=== PATIENT | male | born 1980 | race Caucasian/White ===

== ENCOUNTER 2021-10-11 15:31 | Emergency (ER) | payer OTHER ==
--- OUTSIDE RECORDS SUMMARY | 2021-10-11 15:40 | XMS REPORT | Continuity of Care Document ---
:1980 Author Organization [facility] t Address [address] [place] [address] [address] [place] [address] Care Team Providers Name Role Phone SUSTACHE Attending Clinician Unavailable CLAROS Attending Clinician Unavailable IHDE_G Attending Clinician Unavailable IHDE_G Admitting Clinician Unavailable CLAROS Admitting Clinician Unavailable Payers Payer Name Policy Type Policy Number Effective Date Expiration Date S ource EAST - HUMANA [id number] - PRIME () Problems Condition Condition Condition Status Onset Resolution Last Treating Co mments Source Name Details Category Date Date Treatment Clinician Date Right Right Problem Active NPI:167 inguinal Inguinal 02-19 [id number] hernia Hernia 00:00: 00 Allergies, Adverse Reactions, Alerts Allergy Allergy Status Severity Reaction(s) Onset Inactive Treating Comm ents Source Name Type Date Date Clinician NSAIDS Allergy Active GI bleed NPI:167 (NON-YARELIS to [id number] ROIDAL substanc ANTI-INF e LAMMATOR Y DRUG) PERTUSSI Allergy Active NPI:167 S to [id number] VACCINES substanc e Social History Smoking Status Start Date Stop Date Source Heavy Tobacco Smoker NPI:[id number] Medications Ordered Filled Start Stop Current Ordering Indication Dosage Frequency Signature Comments Components Source Medication Medication Date Date Medication? Clinician (SIG) Name Name buprenorphi buprenorphi No buprenorph NPI:167 ne 8 ne 8 ine 8 [id number] mg-naloxone mg-naloxone mg-naloxon 2 mg 2 mg e 2 mg sublingual sublingual sublingual film film film clonidine clonidine No clonidine NPI:167 HCl 0.2 mg HCl 0.2 mg HCl 0.2 mg [id number] tablet tablet tablet eszopiclone eszopiclone No eszopiclon NPI:167 3 mg tablet 3 mg tablet e 3 mg [id number] tablet levetiracet levetiracet No levetirace NPI:167 am 750 mg am 750 mg mendez 750 mg [id number] tablet tablet tablet modafinil modafinil No modafinil NPI:167 200 mg 200 mg 200 mg [id number] tablet tablet tablet naltrexone naltrexone No naltrexone NPI:167 50 mg 50 mg 50 mg [id number] tablet tablet tablet Onfi 10 mg Onfi 10 mg No Onfi 10 mg NPI:167 tablet tablet tablet [id number] pantoprazol pantoprazol No pantoprazo NPI:167 e 40 mg e 40 mg le 40 mg 64550 15 tablet,kelvin tablet,kelvin tablet,del yed release yed release ayed release prazosin 1 prazosin 1 No prazosin 1 NPI:167 mg capsule mg capsule mg capsule [id number] prednisone prednisone No prednisone NPI:167 10 mg 10 mg 10 mg [id number] tablet tablet tablet ProAir HFA ProAir HFA No ProAir HFA NPI:167 90 90 90 1051550 mcg/actuati mcg/actuati mcg/actuat on aerosol on aerosol ion inhaler inhaler aerosol inhaler sertraline sertraline No sertraline NPI:167 100 mg 100 mg 100 mg [id number] tablet tablet tablet topiramate topiramate No topiramate NPI:167 50 mg 50 mg 50 mg [id number] tablet tablet tablet Vital Signs Vital Name Observation Time Observation Value Comments Source BP Diastolic 2019-02-24 00:00:00 76 mm[Hg] NPI:1679 [id number] Height 2019-02-24 00:00:00 68 [in_i] NPI:1679 [id number] BMI (Body Mass Index) 2019-02-24 00:00:00 30.1 kg/m2 BP Systolic 2019-02-24 00:00:00 148 mm[Hg] NPI:1679 [id number] Body Weight 2019-02-24 00:00:00 198 [lb_av] NPI:1679 [id number] BP Diastolic 2019-02-19 00:00:00 89 mm[Hg] NPI:1679 [id number] Height 2019-02-19 00:00:00 68 [in_i] NPI:1679 [id number] BMI (Body Mass Index) 2019-02-19 00:00:00 30.1 kg/m2 BP Systolic 2019-02-19 00:00:00 154 mm[Hg] NPI:1679 [id number] Body Weight 2019-02-19 00:00:00 3168 [oz_av] NPI:1679 [id number] Procedures Procedure Date / Time Performed Performing Clinician Jeuss garza Procedure on Ankle NPI:[id number] Laminectomy Primary Fusion of Cervical NPI:1 [id number] Spine Knee Surgery Shoulder Surgery Procedure NPI:1 [id number] Encounters Start End Encounter Admission Attending Care Care Encounter Source Date/Time Date/Time Type Type Clinicians Facility Department ID 2021-08-14 2021-08-14 Outpatient SUSTACHE, [facility] [id number] [place] 00:00:00 00:00:00 CHRISSIE [address] 2021-07-18 2021-07-18 Outpatient SUSTACHE, [facility] [id number] [place] 00:00:00 00:00:00 CHRISSIE [address] 2021-06-28 2021-06-28 Outpatient GIULIA CLAROS [facility] [id number] [place] 00:00:00 00:00:[address] 2020-12-27 2020-12-27 Outpatient GIULIA CLAROS [facility] [id number] [place] 00:00:00 00:00:[address] 2020-04-20 2020-04-20 Outpatient IHDE_G [facility] G [id number] NPI:167 02:22:00 02:22:00 [id number] 2019-10-28 2019-10-28 Outpatient GIULIA CLAROS [facility] [id number] [place] 00:00:00 00:00:[address] 2019-05-04 2019-05-08 Inpatient GIULIA CLAROS [facility] [id number] [place] 00:00:00 00:00:[address] 2019-02-24 2019-02-24 Bj [facility] [place] - [id number] N PI:167 00:00:00 00:00:00 Daniel Rodgers [id number] MD [place]: [address], [place] [address] , Ph. [phone] 2019-02-19 2019-02-19 Tank Perez [facility] [place] - [id number] N PI:167 00:00:00 00:00:00 MD Jesus: Categorical [id number] [place] [address] - [address], [facility] [address] , Ph. Results This patient has no known results.
[2021-10-11 16:10] LABS: Absolute Lymphocytes (CBC) 1.2 K/uL (0.7-4.9); Hematocrit 40.5 % (39.6-49.0); Lymphocytes % 21.7 % (15.3-44.8); MPV 7.6 fL (7.6-11.3); RBC Red Blood Cell Count 4.45 M/uL (4.33-5.43)
[2021-10-11 16:16] LABS: Protime INR 0.89
[2021-10-11] MEDS ORDERED: DIAZEPAM 10 MG/2 ML INJ SYRINGE ONE (16:18)
[2021-10-11 16:31] LABS: ALT/SGPT 30 U/L (12-78); AST/SGOT 21 U/L (15-37); Albumin 4.2 g/dL (3.4-5.0); Alkaline Phosphatase 73 U/L (45-117); BUN Blood Urea Nitrogen 21 mg/dL (7-18); Bicarbonate 26 mmol/L (21-32); Bilirubin Direct 0.1 mg/dL (0-0.2); Bilirubin Total 0.2 mg/dL (0.2-1.0); Glucose Level 85 mg/dL (74-106); Potassium 4.2 mmol/L (3.5-5.1); Protein, Total 7.2 g/dL (6.4-8.2); Sodium Level 134 mmol/L (136-145)
[2021-10-11 18:05] LABS: Barbiturates NEGATIVE (NEGATIVE); Benzodiazepines POSITIVE (NEGATIVE); Cocaine NEGATIVE (NEGATIVE); METHAMPHETAM NEGATIVE (NEGATIVE); Methadone NEGATIVE (NEGATIVE); Opiates NEGATIVE (NEGATIVE); Phencyclidine NEGATIVE (NEGATIVE); THC Cannibis NEGATIVE (NEGATIVE)
--- NOTE | 2021-10-11 19:10 | ER ---
Nurse's Notes [facility] Name: Ar Flores Age: 41 yrs Sex: Male : 1980 Arrival Date: 10/11/2021 Time: 15:42 Bed 16 Private MD: Diagnosis: Alcohol withdrawal Presentation: 10/11 15:50 Chief complaint: Patient states: At the [facility] clinic and started having an increase in ww tremors and tactile hallucinations. Patient has not drank since yesterday and used to drinking 15 + beers a day. Coronavirus screen: Client denies travel out of the [place] in the last 14 days. Ebola Screen: Patient denies travel to an Ebola-affected area in the 21 days before illness onset. Initial Sepsis Screen: Does the patient meet any 2 criteria? No. Patient's initial sepsis screen is negative. Does the patient have a suspected source of infection? No. Patient's initial sepsis screen is negative. Risk Assessment: Do you want to hurt yourself or someone else? Patient reports no desire to harm self or others. Onset of symptoms was October 11, 2021. 15:50 Method Of Arrival: EMS: [facility] ww 15:50 Acuity: TREY 3 ww Triage Assessment: 15:53 General: Appears comfortable, Behavior is cooperative, anxious. Pain: Denies pain. ww Neuro: Level of Consciousness is awake, alert, obeys commands, Oriented to person, place, time, situation, tremors . Cardiovascular: Capillary refill < 3 seconds Patient's skin is warm and dry. Rhythm is regular. Respiratory: Airway is patent Respiratory effort is even, unlabored, Respiratory pattern is regular, symmetrical. GI: Abdomen is non-distended, Abd is soft and non tender. : No signs and/or symptoms were reported regarding the genitourinary system. Derm: No signs and/or symptoms reported regarding the dermatologic system. Skin is intact, is healthy with good turgor, Skin is pink, warm \\T\\ dry. Musculoskeletal:. Historical: - Allergies: 15:53 Demerol; ww 15:53 NSAIDS; ww 15:53 Pertussis Vaccines; ww 15:53 tramadol; ww - PMHx: 15:53 PTSD; Seizures; Hypertensive disorder; Anxiety; Depressive disorder; ww - Immunization history:: Adult Immunizations up to date. - Social history:: Smoking status: Patient reports the use of cigarette tobacco products, Patient uses alcohol, on a daily basis. Screenin:55 Abuse screen: Denies threats or abuse. Denies injuries from another. Nutritional ww screening: No deficits noted. Tuberculosis screening: No symptoms or risk factors identified. Fall Risk None identified. Assessment: 15:55 Reassessment: Patient appears in no apparent distress at this time. No changes from ww previously documented assessment. Patient and/or family updated on plan of care and expected duration. Pain level reassessed. Patient is alert, oriented x 3, equal unlabored respirations, skin warm/dry/pink. see triage assessment. 16:39 Reassessment: Patient appears in no apparent distress at this time. No changes from ww previously documented assessment. Patient and/or family updated on plan of care and expected duration. Pain level reassessed. Patient is alert, oriented x 3, equal unlabored respirations, skin warm/dry/pink. 17:39 Reassessment: Patient appears in no apparent distress at this time. No changes from ww previously documented assessment. Patient and/or family updated on plan of care and expected duration. Pain level reassessed. Patient is alert, oriented x 3, equal unlabored respirations, skin warm/dry/pink. Patient states feeling better. 18:34 Reassessment: Patient appears in no apparent distress at this time. No changes from ww previously documented assessment. Patient and/or family updated on plan of care and expected duration. Pain level reassessed. Patient is alert, oriented x 3, equal unlabored respirations, skin warm/dry/pink. 19:24 Reassessment: Patient and/or family updated on plan of care and expected duration. Pain sm5 level reassessed. Patient is alert, oriented x 3, equal unlabored respirations, skin warm/dry/pink. Psych: 16:53 [place] Suicide Severity Screening: In the past month, have you wished you were ww or wished you could go to sleep and not wake up? Patient responds "No." "In the past month, have you actually had any thoughts of killing yourself?" Patient responds "no." "In your lifetime, have you ever done anything, started to do anything, or prepared to do anything to end your life?" Patient responds "no.". Subjective: Delusions are denied. Objective: Patient is cooperative, Speech is normal, Affect is appropriate. Interventions: Removed personal items and placed in bag. Patient placed in hospital gown. Safety Checks: Door is open. Visitors are present. Patient uses 15+ beers a day. Commitment: none. Vital Signs: 15:50 BP 139 / 113; Pulse 76; Resp 22; Temp 98.6; Pulse Ox 99% ; Weight 84.37 kg; Height 5 ww ft. 8 in. (172.72 cm); Pain 0/10; 16:39 BP 120 / 81; Pulse 76; Resp 16; Pulse Ox 98% on R/A; ww 17:39 BP 140 / 86; Pulse 82; Resp 18; Pulse Ox 98% ; ww 18:34 BP 134 / 78; Pulse 68; Resp 18; Pulse Ox 98% ; ww 15:50 Body Mass Index 28.28 (84.37 kg, 172.72 cm) ww ED Course: 15:42 Patient arrived in ED. ds1 15:42 Marquis Meza PA is PHCP. [facility] 15:42 Truong Madden DO is Attending Physician. [facility] 15:50 Maryam German, STEPHANIE is Primary Nurse. ww 15:53 Triage completed. ww 15:53 Arm band placed on. ww 15:55 Patient has correct armband on for positive identification. Bed in low position. Call ww light in reach. Side rails up X2. Adult w/ patient. Client placed on continuous cardiac and pulse oximetry monitoring. NIBP monitoring applied. 15:55 Maintain EMS IV. Dressing intact. Good blood return noted. Site clean \\T\\ dry. Gauge \\T\\ ww site: 16g right forearm. 19:24 No provider procedures requiring assistance completed. IV discontinued, intact, 5 bleeding controlled, No redness/swelling at site. Pressure dressing applied. Administered Medications: 16:18 Drug: Valium (diazepam) 5 mg Route: IVP; Site: right forearm; ww 18:05 Follow up: Response: No adverse reaction Outcome: 19:09 Discharge ordered by MD. santillan 19:25 Discharged to home ambulatory, with family. 5 19:25 Condition: stable 19:25 Discharge instructions given to patient, family, Instructed on discharge instructions, follow up and referral plans. medication usage, Demonstrated understanding of instructions, follow-up care, medications, Prescriptions given X 2. 19:26 Patient left the ED. 5 Signatures: Marquis Meza PA PA jmm Sanford, Demi ds1 Adali Rodriguez RN RN sm5 Maryam German RN RN ww
--- NOTE | 2021-10-11 19:10 | EDPHYS ---
Physician Documentation [facility] Name: Ar Flores Age: 41 yrs Sex: Male : 1980 Arrival Date: 10/11/2021 Time: 15:42 Bed 16 Private MD: ED Physician Truong Madden HPI: 10/11 15:50 This 41 yrs old Male presents to ER via EMS with complaints of Alcohol Withdrawal. [facility] 15:50 Is a 41-year-old male with history of PTSD, epilepsy, hypertension the presents emerged [facility] department with complaints of tremors. Patient states he is an alcoholic and drank last night but does not drink since then. Denies shortness of breath, chest pain, vomiting.. Historical: - Allergies: 15:53 Demerol; ww 15:53 NSAIDS; ww 15:53 Pertussis Vaccines; ww 15:53 tramadol; ww - PMHx: 15:53 PTSD; Seizures; Hypertensive disorder; Anxiety; Depressive disorder; ww - Immunization history:: Adult Immunizations up to date. - Social history:: Smoking status: Patient reports the use of cigarette tobacco products, Patient uses alcohol, on a daily basis. ROS: 15:50 Cardiovascular: Negative for chest pain, palpitations, and edema, Respiratory: Negative jm for shortness of breath, cough, wheezing, and pleuritic chest pain, Abdomen/GI: Negative for abdominal pain, nausea, vomiting, diarrhea, and constipation. 15:50 Constitutional: Positive for body aches, fatigue. 15:50 Neuro: Positive for weakness. 15:50 All other systems are negative. Exam: 15:50 Constitutional: This is a well developed, well nourished patient who is awake, alert, jmm and in no acute distress. Head/Face: atraumatic. Eyes: EOMI, no conjunctival erythema appreciated ENT: Moist Mucus Membranes Neck: Trachea midline, Supple Chest/axilla: Normal chest wall appearance and motion. Cardiovascular: Regular rate and rhythm. No edema appreciated Respiratory: Normal respirations, no respiratory distress appreciated Abdomen/GI: Non distended, soft Back: Normal ROM Skin: General appearance color normal MS/ Extremity: Moves all extremities, no obvious deformities appreciated, no edema noted to the lower extremities 15:50 Neuro: Abnormal movements: resting tremor, is located in the right arm and left arm. 15:50 Psych: Behavior/mood is pleasant, cooperative. Vital Signs: 15:50 BP 139 / 113; Pulse 76; Resp 22; Temp 98.6; Pulse Ox 99% ; Weight 84.37 kg; Height 5 ww ft. 8 in. (172.72 cm); Pain 0/10; 16:39 BP 120 / 81; Pulse 76; Resp 16; Pulse Ox 98% on R/A; ww 17:39 BP 140 / 86; Pulse 82; Resp 18; Pulse Ox 98% ; ww 18:34 BP 134 / 78; Pulse 68; Resp 18; Pulse Ox 98% ; ww 15:50 Body Mass Index 28.28 (84.37 kg, 172.72 cm) ww MDM: 15:50 Patient medically screened. [facility] 19:08 Data reviewed: vital signs, nurses notes. Counseling: I had a detailed discussion with tyrell the patient and/or guardian regarding: the historical points, exam findings, and any diagnostic results supporting the discharge/admit diagnosis, lab results, the need for outpatient follow up, to return to the emergency department if symptoms worsen or persist or if there are any questions or concerns that arise at home. ED course: Symptoms are alleviated in the ED. Patient advised follow-up PCP and otherwise given strict return precautions. Patient understood agrees plan of care.. 10/11 15:52 Order name: Acetaminophen; Complete Time: 17: [facility] 10/11 15:52 Order name: Basic Metabolic Panel; Complete Time: 17:02 [facility] 10/11 15:52 Order name: CBC with Diff; Complete Time: 17: [facility] 10/11 15:52 Order name: ETOH Level; Complete Time: 17: [facility] 10/11 15:52 Order name: Hepatic Function; Complete Time: 17:02 [facility] 10/11 15:52 Order name: PT-INR; Complete Time: 17:02 [facility] 10/11 15:52 Order name: Ptt, Activated; Complete Time: 17:02 [facility] 10/11 15:52 Order name: Salicylate; Complete Time: 17:02 [facility] 10/11 15:52 Order name: Urine Drug Screen; Complete Time: 18:07 [facility] 10/11 15:52 Order name: EKG; Complete Time: 15:53 [facility] 10/11 15:52 Order name: EKG - Nurse/Tech; Complete Time: 16:11 [facility] 10/11 15:52 Order name: IV Saline Lock; Complete Time: 15:57 [facility] 10/11 15:52 Order name: Labs collected and sent; Complete Time: 15:57 [facility] 10/11 15:52 Order name: Suicide Screening (Min[place]); Complete Time: 16:55 [facility] 10/11 15:52 Order name: Urine Dipstick-Ancillary (obtain specimen); Complete Time: 15:57 [facility] Administered Medications: 16:18 Drug: Valium (diazepam) 5 mg Route: IVP; Site: right forearm; ww 18:05 Follow up: Response: No adverse reaction ww Disposition: 21:26 Co-signature as Attending Physician, Truong Madden DO I was immediately available on-site ms3 in the Emergency Department for consultation in the care of the patient.. Disposition Summary: 10/11/21 19:09 Discharge Ordered Location: Home [facility] Condition: Stable [facility] Diagnosis - Alcohol withdrawal [facility] Followup: [facility] - With: Private Physician - When: 2 - 3 days - Reason: Recheck today's complaints, Continuance of care, Re-evaluation by your physician Discharge Instructions: - Discharge Summary Sheet [facility] - Alcohol Withdrawal Syndrome [facility] Forms: - Medication Reconciliation Form [facility] - Thank You Letter [facility] - Antibiotic Education [facility] - Prescription Opioid Use [facility] Prescriptions: - chlordiazepoxide HCl 25 mg Oral capsule - take 1 capsule by ORAL route 4 times per day Please take 50 mg every 6 hours on [facility] day 1. Take 25 mg every 6 hours on day 2. Take 25 mg every 12 hours on day 3. Then take 25 mg at night on day 4; 15 capsule; Refills: 0, Product Selection Permitted - ondansetron 4 mg Oral tablet,disintegrating - take 1 tablet by ORAL route every 8 hours As needed; 20 tablet; Refills: 0, [facility] Product Selection Permitted Signatures: Dispatcher [employer] Marquis Tolbert PA PA Truong Gonzalez DO DO ms3 Adali Rodriguez RN RN sm5 Maryam German RN RN ww
[2021-10-11 21:05] VITALS: TEMP 98.6
[2021-10-11 21:06] VITALS: O2SAT 98
[2021-10-11 21:08] VITALS: BP 134/78
--- NOTE | 2021-10-12 07:45 | EKG ---
Test Date: 2021-10-11 Test Time: 16:06:20 Pet Ambassador: FREIDA MEASUREMENT RESULTS: Intervals: Rate: 72 OK: 164 QRSD: 92 QT: 402 QTc: 440 [place]: P: 70 OK: 164 QRS: 42 T: 52 INTERPRETIVE STATEMENTS: Normal sinus rhythm Normal ECG Compared to ECG 11/05/2016 17:12:02 No significant changes Electronically Signed On 10-12-21 07:43:26 CDT by Burke Li
[2021-10-15 14:29] LABS: Urine Blood Negative (Negative); Urine Glucose Negative (Negative); Urine Protein Negative (Negative); Urine Specific Gravity 1.025 (1.005-1.030); Urine pH 5.5 (5.0-7.0)
== END 2021-10-11 19:26 | disposition home or self-care (01) ==
LOC: ER 15:31
DX: F10.239 Alcohol dependence with withdrawal, unspecified (principal); I10 Essential (primary) hypertension; F43.10 Post-traumatic stress disorder, unspecified; Z72.0 Tobacco use; Z88.5 Allergy status to narcotic agent; Z88.6 Allergy status to analgesic agent; Z88.7 Allergy status to serum and vaccine
CPT/HCPCS: 93005; 85025; 80048; 36415; 80320; 80329 ×2; 85610; 80076; 85730; 81003; 80307; 96374; 99283; J3360

== ENCOUNTER 2022-01-03 12:24 | Inpatient (IN) | payer OTHER ==
--- OUTSIDE RECORDS SUMMARY | 2022-01-03 12:26 | XMS REPORT | Continuity of Care Document ---
:1980 Author Organization [facility] Address [address] [place] [address] [address]. [address] [place] [address] Care Team Providers Name Role Phone CHRISSIE SETHI Attending Clinician Unavailable GIULIA CLAROS Attending Clinician Unavailable IHDE_G Attending Clinician Unavailable IHDE_G Admitting Clinician Unavailable GIULIA CLAROS Admitting Clinician Unavailable Payers Payer Name Policy Type Policy Number Effective Date Expiration Date S ournasir EAST - HUMA[employer] [id number] - PRIME () Problems Condition Condition Condition Status Onset Resolution Last Treating Co mments Source Name Details Category Date Date Treatment Clinician Date Right Right Problem Active [place] inguinal Inguinal 02-19 da hernia Hernia 00:00: Medical 00 Group Allergies, Adverse Reactions, Alerts Allergy Allergy Status Severity Reaction(s) Onset Inactive Treating Comm ents Source Name Type Date Date Clinician NSAIDS Allergy Active GI bleed [place] (NON-YARELIS to da ROIDAL substanc Medical ANTI-INF e Group LAMMATOR Y DRUG) PERTUSSI Allergy Active [place] to da VACCINES substanc Medica l e Group Social History Smoking Status Start Date Stop Date Source Heavy Tobacco Smoker [facility] Medications Ordered Filled Start Stop Current Ordering Indication Dosage Frequency Signature Comments Components Source Medication Medication Date Date Medication? Clinician (SIG) Name Name buprenorphi buprenorphi No buprenorph [place] ne 8 ne 8 ine 8 da mg-naloxone mg-naloxone mg-naloxon Medical 2 mg 2 mg e 2 mg Group sublingual sublingual sublingual film film film clonidine clonidine No clonidine [place] HCl 0.2 mg HCl 0.2 mg HCl 0.2 mg da tablet tablet tablet Medical Group eszopiclone eszopiclone No eszopiclon [place] 3 mg tablet 3 mg tablet e 3 mg da tablet Medical Group levetiracet levetiracet No levetirace [place] am 750 mg am 750 mg mendez 750 mg da tablet tablet tablet Medical Group modafinil modafinil No modafinil [place] 200 mg 200 mg 200 mg da tablet tablet tablet Medical Group naltrexone naltrexone No naltrexone [place] 50 mg 50 mg 50 mg da tablet tablet tablet Medical Group Onfi 10 mg Onfi 10 mg No Onfi 10 mg [place] tablet tablet tablet da Medical Group pantoprazol pantoprazol No pantoprazo [place] e 40 mg e 40 mg le 40 mg da tablet,kelvin tablet,kelvin tablet,del Medical yed release yed release ayed G roup release prazosin 1 prazosin 1 No prazosin 1 [place] mg capsule mg capsule mg capsule da [facility] prednisone prednisone No prednisone [place] 10 mg 10 mg 10 mg da tablet tablet tablet Medical Group ProAir HFA ProAir HFA No ProAir HFA [place] 90 90 90 da mcg/actuati mcg/actuati mcg/actuat Medical on aerosol on aerosol ion Gustavo up inhaler inhaler aerosol inhaler sertraline sertraline No sertraline [place] 100 mg 100 mg 100 mg da tablet tablet tablet Medical Group topiramate topiramate No topiramate [place] 50 mg 50 mg 50 mg da tablet tablet tablet Medical Group Vital Signs Vital Name Observation Time Observation Value Comments Source BP Diastolic 2019-02-24 00:00:00 76 mm[Hg[facility] Height 2019-02-24 00:00:00 68 [in_i] [facility] BMI (Body Mass 2019-02-24 00:00:00 30.1 kg/m2 [facility]) Group BP Systolic 2019-02-24 00:00:00 148 mm[Hg] [facility] Body Weight 2019-02-24 00:00:00 198 [lb_av] [facility] BP Diastolic 2019-02-19 00:00:00 89 mm[Hg] [facility] Height 2019-02-19 00:00:00 68 [in_i] [facility] BMI (Body Mass 2019-02-19 00:00:00 30.1 kg/m2 [facility]) Group BP Systolic 2019-02-19 00:00:00 154 mm[Hg] [facility] Body Weight 2019-02-19 00:00:00 3168 [oz_av] [facility] Procedures Procedure Date / Time Performed Performing Clinician [facility] e Procedure on Ankle [facility] L[facility] Knee [facility] Shoulder [facility] Group Encounters Start End Encounter Admission Attending Care Care Encounter Source Date/Time Date/Time Type Type Clinicians Facility Department ID 2022-01-02 2022-01-02 Outpatient [facility] [id number] [place] 00:00:00 00:00:[address] 2021-12-21 2021-12-21 Outpatient SUSTACHE, [facility] [id number] [place] 00:00:00 00:00:[address] 2021-08-14 2021-08-14 Outpatient SUSTACHE, [facility] [id number] [place] 00:00:00 00:00:00 CHRISSIE [address] 2021-07-18 2021-07-18 Outpatient SUSTACHE, [facility] [id number] [place] 00:00:00 00:00:00 CHRISSIE [address] 2021-06-28 2021-06-28 Outpatient GIULIA CLAROS [facility] [id number] [place] 00:00:00 00:00:[address] 2020-12-27 2020-12-27 Outpatient GIULIA CLAROS [facility] [id number] [place] 00:00:00 00:00:[address] 2020-04-20 2020-04-20 Outpatient IHDE_G [facility] [id number] [place] 02:22:00 02:22:00 1118 [facility] 2019-10-28 2019-10-28 Outpatient GIULIA CLAROS [facility] [id number] [place] 00:00:00 00:00:[address] 2019-05-04 2019-05-08 Inpatient HARLAN [facility] [id number] [place] 00:00:00 00:00:[address] 2019-02-24 2019-02-24 Bj [facility] [place] - [id number] M [facility] 00:00:00 00:00:00 Daniel Melo MD: [facility] [address], [place] [address] , Ph. [phone] 2019-02-19 2019-02-19 Tank Perez [facility] [place] - [id number] M at[facility] 00:00:00 00:00:00 MD Jesus: [facility] [address] [place] [address] - [address], [facility] [place] [address] , Ph. Results This patient has no known results.
--- NOTE | 2022-01-03 13:39 | RAD REPORT ---
EXAM DESCRIPTION: CT - Head Brain Wo Cont - 01/03/2022 1:23 pm CLINICAL HISTORY: Headache, new or worsening, positional COMPARISON: HEAD BRAIN W O CONTRAST dated 09/22/2014 TECHNIQUE: Axial 5 mm thick images of the head were obtained without IV contrast. All CT scans are performed using dose optimization technique as appropriate and may include automated exposure control or mA/KV adjustment according to patient size. FINDINGS: No intracranial hemorrhage, mass, edema or shift of mid-line structures. No acute infarcti on changes seen. No abnormal extra-axial fluid collections. Ventricles are normal. Mastoid air cells and visualized portions of the paranasal sinuses are clear. No acute bony findings. IMPRESSION: Negative non-contrast CT head examination.
[2022-01-03 14:25] LABS: Absolute Lymphocytes (CBC) 0.4 K/uL (0.7-4.9); Hematocrit 42.3 % (39.6-49.0); Lymphocytes % 10.3 % (15.3-44.8); MCV 89.2 fL (80-100); MPV 7.8 fL (7.6-11.3); RBC Red Blood Cell Count 4.74 M/uL (4.33-5.43)
--- NOTE | 2022-01-03 14:28 | RAD REPORT ---
EXAM DESCRIPTION: RAD - Chest Single View - 01/03/2022 2:13 pm CLINICAL HISTORY: Cough COMPARISON: September 2014 TECHNIQUE: AP portable chest image was obtained 01/03/2022 2:13 pm . FINDINGS: No focal lung parenchymal process. Interstitial markings are mildly prominent but not kathleen rly different from comparison. A minimal interstitial edema or infiltrate could be masked. Heart and vasculature are normal. No measurable pleural effusion and no pneumothorax. No acute bony abnormality seen. No acute aortic findings suspected. IMPRESSION: No focal mass or consolidations seen. Baseline interstitial pattern could potentially mask minimal edema or infiltrate.
[2022-01-03 14:29] LABS: Protime INR 0.94
--- NOTE | 2022-01-03 14:31 | ER ---
Nurse's Notes [facility] Name: Ar Flores Age: 41 yrs Sex: Male : 1980 Arrival Date: 01/03/2022 Time: 12:25 Bed 26 Private MD: Diagnosis: Headache;Fever, unspecified;Meningitis, unspecified Presentation: 01/03 12:55 Chief complaint: Patient states: i have a continual headache for 4 days now. i had a tw2 seizure this week as well. the worse i ever have had. i have tried everything i have imitrex. my neck has been stiff and sore. its note muscle aches. when i cough it shoots on the side of my head. i have been running a fever. i got on a virtual urgent care yesterday evening, she was concerned about meningitis. nauseated and the pain. position changes hurts. coughing is unbearable. Coronavirus screen: At this time, the client does not indicate any symptoms associated with coronavirus-19. Ebola Screen: Patient denies travel to an Ebola-affected area in the 21 days before illness onset. Initial Sepsis Screen: Does the patient meet any 2 criteria? HR > 90 bpm. No. Patient's initial sepsis screen is negative. Does the patient have a suspected source of infection? No. Patient's initial sepsis screen is negative. Risk Assessment: Do you want to hurt yourself or someone else? Patient reports no desire to harm self or others. Onset of symptoms was January 03, 2022. 12:55 Method Of Arrival: Ambulatory tw2 12:55 Acuity: TREY 2 tw2 12:59 Note pt states "i also quit alcohol October 13, i was drinking a lot a lot about 1/2 of a tw2 30 rack a day for years". Triage Assessment: 12:59 Headache History: The patient has had previous headaches and this one is more severe tw2 than previous episodes. General: Appears uncomfortable, Behavior is cooperative, appropriate for age. General: Reports chills for fever for Denies muscle pains. Pain: Complains of pain in crown and side of head, and neck pain Pain currently is 10 out of 10 on a pain scale. Pain began 4 days ago Also complains of nausea. Neuro: Level of Consciousness is awake, alert, obeys commands, Oriented to person, place, time, situation. Historical: - Allergies: 12:58 Demerol; seizure inducing; tw2 12:58 NSAIDS; tw2 12:58 Pertussis Vaccines; tw2 12:58 tramadol; seizure inducing; tw2 12:58 Meperidine; tw2 - PMHx: 12:58 Anxiety; depressive disorder; Hypertensive disorder; PTSD; Seizures; tw2 - PSHx: 12:58 None; tw2 - Immunization history:: Client reports having NOT received the Covid vaccine. - Social history:: Smoking status: Patient reports the use of cigarette tobacco products, smokes one pack cigarettes per day. Patient uses. Screenin:54 Abuse screen: Denies threats or abuse. Denies injuries from another. Nutritional ph screening: No deficits noted. Tuberculosis screening: No symptoms or risk factors identified. Fall Risk None identified. Assessment: 14:00 General: Appears in no apparent distress. uncomfortable, Behavior is calm, cooperative, ph appropriate for age, Reports chills for fever for 2-3 days, night sweats and low grade fevers. Pain: Complains of pain in forehead and top of head Pain radiates to neck, also c/o neck stiffness. Neuro: Level of Consciousness is awake, alert, obeys commands, Oriented to person, place, time, situation, Reports headache. Cardiovascular: Capillary refill < 3 seconds in bilateral fingers Patient's skin is warm and dry. Respiratory: Airway is patent Respiratory effort is even, unlabored, Respiratory pattern is regular, symmetrical, Denies cough, shortness of breath. GI: No signs and/or symptoms were reported involving the gastrointestinal system. Patient currently denies nausea, vomiting. : No signs and/or symptoms were reported regarding the genitourinary system. Derm: Skin is healthy with good turgor, Skin is pink, warm \\T\\ dry. Musculoskeletal: Circulation, motion, and sensation intact. Range of motion: intact in all extremities. 14:45 Reassessment: Patient appears in no apparent distress at this time. Patient and/or ph family updated on plan of care and expected duration. Pain level reassessed. Patient is alert, oriented x 3, equal unlabored respirations, skin warm/dry/pink. Dr Bee at bedside for lumbar puncture. 18:00 Reassessment: Patient appears in no apparent distress at this time. Patient and/or ph family updated on plan of care and expected duration. Pain level reassessed. Patient is alert, oriented x 3, equal unlabored respirations, skin warm/dry/pink. 19:07 Reassessment: Patient appears in no apparent distress at this time. Patient and/or ph family updated on plan of care and expected duration. Pain level reassessed. Patient is alert, oriented x 3, equal unlabored respirations, skin warm/dry/pink. Vital Signs: 12:55 BP 159 / 101; Pulse 109; Resp 17; Temp 97.7(TE); Pulse Ox 98% ; Weight 83.91 kg; Pain tw2 9/10; 15:00 BP 132 / 72; Pulse 71; Resp 18; Pulse Ox 98% on R/A; ph 15:52 BP 148 / 89; Pulse 73; Resp 18; Pulse Ox 100% on R/A; ph 17:00 BP 151 / 78; Pulse 68; Resp 18; Pulse Ox 99% on R/A; ph 18:00 BP 136 / 78; Pulse 72; Resp 16; Pulse Ox 98% on R/A; ph 19:08 BP 137 / 81; Pulse 70; Resp 16; Pulse Ox 99% on R/A; ph [place] Coma Score: 14:25 Eye Response: spontaneous(4). Verbal Response: oriented(5). Motor Response: obeys bruce commands(6). Total: 15. 14:27 Eye Response: spontaneous(4). Verbal Response: oriented(5). Motor Response: obeys bruce commands(6). Total: 15. ED Course: 12:25 Patient arrived in ED. mr 12:58 Triage completed. tw2 12:59 Arm band placed on. tw2 13:02 Srini Bee MD is Attending Physician. bruce 13:25 CT Head Brain wo Cont In Process Unspecified. EDMS 13:26 Maritza Robins, RN is Primary Nurse. ph 13:45 Missed attempt(s): 20 gauge in right forearm. Bleeding controlled, band aid applied, dh3 catheter tip intact. 13:52 EKG done, by ED staff, reviewed by Srini Bee MD. dh3 14:05 Initial lab(s) drawn, by ma, sent to lab. Inserted saline lock: 22 gauge in right ph forearm, using aseptic technique. Blood collected. 14:14 XRAY Chest (1 view) In Process Unspecified. EDMS 14:29 Adi Mclain MD is Hospitalizing Provider. bruce 14:45 Assist provider with lumbar puncture: Set up LP tray. Performed by Srini Bee MD ph CSF is clear. Sample collected. Sample sent to lab. Puncture site dressed with band aid, Procedure was successful. Patient tolerated well. advised to lie flat for 1 hour following procedure. 15:05 Adi Mclain MD is Hospitalizing Provider. [facility] 15:06 Troy Padilla MD is Hospitalizing Provider. bruce 15:54 Patient has correct armband on for positive identification. Placed in gown. Bed in low ph position. Call light in reach. Side rails up X 1. Client placed on continuous cardiac and pulse oximetry monitoring. NIBP monitoring applied. Door closed. Noise minimized. 15:57 Patient admitted, IV remains in place. ph Administered Medications: 14:35 Drug: Tylenol 1000 mg Route: PO; ph 19:27 Follow up: Response: No adverse reaction ph 14:40 Drug: NS 0.9% 1000 ml Route: IV; Rate: 1 bolus; Site: right forearm; aa5 16:00 Follow up: Response: No adverse reaction; IV Status: Completed infusion; IV Intake: ph 1000ml 14:40 Drug: Pepcid (famotidine) 20 mg Route: IVP; Site: right forearm; ph 15:00 Follow up: Response: No adverse reaction ph 15:22 Drug: Rocephin (cefTRIAXone) 2 grams Route: IV; Rate: per protocol; Site: right forearm;aa5 16:00 Follow up: Response: No adverse reaction; IV Status: Completed infusion ph 15:43 Drug: Zofran (Ondansetron) 4 mg Route: IVP; Site: right forearm; ph 19:28 Follow up: Response: No adverse reaction ph 15:45 Drug: morphine 4 mg Route: IVP; Infused Over: 4 mins; Site: right forearm; ph 16:30 Follow up: Response: No adverse reaction; Pain is decreased; RASS: Alert and Calm (0) ph 18:16 Drug: morphine 4 mg Route: IVP; Infused Over: 4 mins; Site: right forearm; ph 19:26 Follow up: Response: No adverse reaction; Pain is decreased; RASS: Alert and Calm (0) ph Medication: 15:54 VIS not applicable for this client. ph Intake: 16:00 IV: 1000ml; Total: 1000ml. ph Outcome: 14:30 Decision to Hospitalize by Provider. bruce 21:45 Admitted to Med/surg accompanied by nurse, via wheelchair, room 223, with chart, Report ld1 called to STEPHANIE Villanueva 21:45 Condition: stable 21:45 Instructed on the need for admit. 22:01 Patient left the ED. ld1 Signatures: Dispatcher [employer] EDSrini Cruz MD MD cha Rivera, Mary mr Reyes, Margot, RN RN aa5 Maritza Robins, RN RN Raysa Arango RN RN 2 Evelin Anderson [facility] Krys Perdomo RN RN ld1
--- NOTE | 2022-01-03 14:31 | EDPHYS ---
Physician Documentation [facility] Name: Ar Flores Age: 41 yrs Sex: Male : 1980 Arrival Date: 01/03/2022 Time: 12:25 Bed 26 Private MD: DANIELA Physician Srini Bee HPI: 01/03 14:17 This 41 yrs old Male presents to ER via Ambulatory with complaints of bruce Headache, Stiff Neck, Fever. 14:17 The patient complains of pain to the top of head, forehead, left side of the back of bruce head, left occipital area and left base of the skull. The patient describes the headache as constant. Onset: The symptoms/episode began/occurred 3 day(s) ago. Associated signs and symptoms: Pertinent positives: dizziness, neck stiffness, Photophobia. Severity of symptoms: At its worst the pain was moderate, severe, in the emergency department the pain is unchanged. Headache History: The patient has had previous headaches and this one is similar to previous episodes. The symptoms are alleviated by nothing. the symptoms are aggravated by nothing. The patient has experienced similar episodes in the past, but today's symptoms are worse, AND FEVER AND STIFF NECK. Historical: - Allergies: 12:58 Demerol; seizure inducing; tw2 12:58 NSAIDS; tw2 12:58 Pertussis Vaccines; tw2 12:58 tramadol; seizure inducing; tw2 12:58 Meperidine; tw2 - PMHx: 12:58 Anxiety; depressive disorder; Hypertensive disorder; PTSD; Seizures; tw2 - PSHx: 12:58 None; tw2 - Immunization history:: Client reports having NOT received the Covid vaccine. - Social history:: Smoking status: Patient reports the use of cigarette tobacco products, smokes one pack cigarettes per day. Patient uses. ROS: 14:23 Constitutional: Negative for fever, chills, and weight loss, Eyes: Negative for injury, bruce pain, redness, and discharge, ENT: Negative for injury, pain, and discharge, Cardiovascular: Negative for chest pain, palpitations, and edema, Respiratory: Negative for shortness of breath, cough, wheezing, and pleuritic chest pain, Abdomen/GI: Negative for abdominal pain, nausea, vomiting, diarrhea, and constipation, Back: Negative for injury and pain, : Negative for injury, bleeding, discharge, and swelling, MS/Extremity: Negative for injury and deformity, Skin: Negative for injury, rash, and discoloration, Psych: Negative for depression, anxiety, suicide ideation, homicidal ideation, and hallucinations, Allergy/Immunology: Negative for hives, rash, and allergies, Endocrine: Negative for neck swelling, polydipsia, polyuria, polyphagia, and marked weight changes, Hematologic/Lymphatic: Negative for swollen nodes, abnormal bleeding, and unusual bruising. 14:23 Neck: Positive for stiffness. 14:23 Neuro: Positive for headache. Exam: 14:23 Constitutional: This is a well developed, well nourished patient who is awake, alert, bruce and in no acute distress. Head/Face: Normocephalic, atraumatic. Eyes: Pupils equal round and reactive to light, extra-ocular motions intact. Lids and lashes normal. Conjunctiva and sclera are non-icteric and not injected. Cornea within normal limits. Periorbital areas with no swelling, redness, or edema. ENT: Nares patent. No nasal discharge, no septal abnormalities noted. Tympanic membranes are normal and external auditory canals are clear. Oropharynx with no redness, swelling, or masses, exudates, or evidence of obstruction, uvula midline. Mucous membranes moist. Chest/axilla: Normal chest wall appearance and motion. Nontender with no deformity. No lesions are appreciated. Cardiovascular: Regular rate and rhythm with a normal S1 and S2. No gallops, murmurs, or rubs. Normal PMI, no JVD. No pulse deficits. Respiratory: Lungs have equal breath sounds bilaterally, clear to auscultation and percussion. No rales, rhonchi or wheezes noted. No increased work of breathing, no retractions or nasal flaring. Abdomen/GI: Soft, non-tender, with normal bowel sounds. No distension or tympany. No guarding or rebound. No evidence of tenderness throughout. Back: No spinal tenderness. No costovertebral tenderness. Full range of motion. Male : Normal genitalia with no discharge or lesions. Skin: Warm, dry with normal turgor. Normal color with no rashes, no lesions, and no evidence of cellulitis. MS/ Extremity: Pulses equal, no cyanosis. Neurovascular intact. Full, normal range of motion. Psych: Awake, alert, with orientation to person, place and time. Behavior, mood, and affect are within normal limits. 14:23 Neck: C-spine: appears grossly normal, no acute changes, Thyroid: appears normal, Trachea: is midline with no obvious abnormalities, no acute changes, ROM/movement: limited range of motion, Meningeal signs: Kernig's sign is negative, Brudzinski's sign is negative, nuchal rigidity, is present. 14:23 ECG was reviewed by the Attending Physician. Vital Signs: 12:55 BP 159 / 101; Pulse 109; Resp 17; Temp 97.7(TE); Pulse Ox 98% ; Weight 83.91 kg; Pain tw2 9/10; 15:00 BP 132 / 72; Pulse 71; Resp 18; Pulse Ox 98% on R/A; ph 15:52 BP 148 / 89; Pulse 73; Resp 18; Pulse Ox 100% on R/A; ph 17:00 BP 151 / 78; Pulse 68; Resp 18; Pulse Ox 99% on R/A; ph 18:00 BP 136 / 78; Pulse 72; Resp 16; Pulse Ox 98% on R/A; ph 19:08 BP 137 / 81; Pulse 70; Resp 16; Pulse Ox 99% on R/A; ph [place] Coma Score: 14:25 Eye Response: spontaneous(4). Verbal Response: oriented(5). Motor Response: obeys bruce commands(6). Total: 15. 14:27 Eye Response: spontaneous(4). Verbal Response: oriented(5). Motor Response: obeys bruce commands(6). Total: 15. Procedures: 14:28 Lumbar Puncture: Patient placed in left lateral decubitus position. Collected 20 ml's bruce of clear fluid. Puncture site dressed with band aid, Patient tolerated well. MDM: 13:02 Patient medically screened. bruce 14:25 Differential diagnosis: cerebral abscess, cervical epidural bleed, cerebral vascular bruce accident, migraine, subarachnoid bleed, subdural hematoma, temporal arteritis, tension headache, trigeminal neuralgia, vasomotor headache. Data reviewed: vital signs, nurses notes, lab test result(s), EKG, radiologic studies, CT scan, plain films. Data interpreted: compliance monitor: rate is 109 beats/min, rhythm is regular, Pulse oximetry: on room air is 98 %. Test interpretation: by ED physician or midlevel provider: ECG, plain radiologic studies. Counseling: I had a detailed discussion with the patient and/or guardian regarding: the historical points, exam findings, and any diagnostic results supporting the discharge/admit diagnosis, lab results, radiology results, the need for further work-up and treatment in the hospital. 01/03 13:07 Order name: Basic Metabolic Panel; Complete Time: 15:04 bruce 01/03 13:07 Order name: CBC with Diff; Complete Time: 14:27 bruce 01/03 13:07 Order name: LFT's; Complete Time: 15:04 bruce 01/03 13:07 Order name: Magnesium; Complete Time: 15:04 bruce 01/03 13:07 Order name: NT PRO-BNP; Complete Time: 15:04 bruce 01/03 13:07 Order name: PT-INR; Complete Time: 15:04 bruce 01/03 13:07 Order name: Troponin HS; Complete Time: 15:04 bruce 01/03 13:07 Order name: Blood Culture Adult (2) bruce 01/03 13:07 Order name: Lactate; Complete Time: 15:04 bruce 01/03 13:07 Order name: Procalcitonin; Complete Time: 15:04 bruce 01/03 13:07 Order name: SARS RAPID; Complete Time: 15:04 bruce 01/03 13:07 Order name: Acetaminophen; Complete Time: 15:04 bruce 01/03 13:07 Order name: ETOH Level; Complete Time: 15:04 bruce 01/03 13:07 Order name: Ptt, Activated; Complete Time: 15:04 bruce 01/03 13:07 Order name: XRAY Chest (1 view); Complete Time: 15:04 bruce 01/03 13:07 Order name: CT Head Brain wo Cont; Complete Time: 14:03 bruce 01/03 13:07 Order name: Salicylate; Complete Time: 15:37 bruce 01/03 13:07 Order name: Urine Drug Screen; Complete Time: 19:59 bruce 01/03 14:14 Order name: Spinal Fluid Profile; Complete Time: 19:59 bruce 01/03 15:43 Order name: Body Fluid Cell Count; Complete Time: 19:59 EDMS 01/03 15:43 Order name: CSF Culture EDMS 01/03 16:02 Order name: Flu; Complete Time: 19:59 ph 01/03 16:02 Order name: RSV; Complete Time: 19:59 ph 01/03 20:20 Order name: Miscellaneous Test Lab EDMS 01/03 13:07 Order name: EKG; Complete Time: 13:08 [facility] 01/03 13:07 Order name: Cardiac monitoring; Complete Time: 19:29 [facility] 01/03 13:07 Order name: EKG - Nurse/Tech; Complete Time: 19:29 [facility] 01/03 13:07 Order name: IV Saline Lock; Complete Time: 14:22 [facility] 01/03 13:07 Order name: Labs collected and sent; Complete Time: 14:22 [facility] 01/03 13:07 Order name: O2 Per Protocol; Complete Time: 14:22 [facility] 01/03 13:07 Order name: O2 Sat Monitoring; Complete Time: 14:22 [facility] 01/03 13:07 Order name: Urine Dipstick-Ancillary (obtain specimen); Complete Time: 19:29 [facility] 01/03 14:14 Order name: Lumbar Puncture Consent; Complete Time: 15:22 [facility] 01/03 14:14 Order name: Lumbar Puncture Setup; Complete Time: 15:22 [facility] EC:23 Rate is 84 beats/min. Rhythm is regular. QRS [place] is Normal. MI interval is normal. QRS bruce interval is normal. QT interval is normal. No Q waves. T waves are Normal. No ST changes noted. Clinical impression: Normal ECG and No evidence of ischemia. Interpreted by me. Reviewed by me. Administered Medications: 14:35 Drug: Tylenol 1000 mg Route: PO; ph 19:27 Follow up: Response: No adverse reaction ph 14:40 Drug: NS 0.9% 1000 ml Route: IV; Rate: 1 bolus; Site: right forearm; aa5 16:00 Follow up: Response: No adverse reaction; IV Status: Completed infusion; IV Intake: ph 1000ml 14:40 Drug: Pepcid (famotidine) 20 mg Route: IVP; Site: right forearm; ph 15:00 Follow up: Response: No adverse reaction ph 15:22 Drug: Rocephin (cefTRIAXone) 2 grams Route: IV; Rate: per protocol; Site: right forearm;aa5 16:00 Follow up: Response: No adverse reaction; IV Status: Completed infusion ph 15:43 Drug: Zofran (Ondansetron) 4 mg Route: IVP; Site: right forearm; ph 19:28 Follow up: Response: No adverse reaction ph 15:45 Drug: morphine 4 mg Route: IVP; Infused Over: 4 mins; Site: right forearm; ph 16:30 Follow up: Response: No adverse reaction; Pain is decreased; RASS: Alert and Calm (0) ph 18:16 Drug: morphine 4 mg Route: IVP; Infused Over: 4 mins; Site: right forearm; ph 19:26 Follow up: Response: No adverse reaction; Pain is decreased; RASS: Alert and Calm (0) ph Disposition Summary: 01/03/22 14:30 Hospitalization Ordered Hospitalization Status: Inpatient Admission bruce Location: Telemetry/MedSurg (Inpatient) bruce Condition: Fair bruce Problem: new bruce Symptoms: have improved bruce Bed/Room Type: Standard bruce Provider: Troy Padilla(01/03/22 15:06) bruce Room Assignment: 213(01/03/22 19:58) cg Diagnosis - Headache bruce - Fever, unspecified bruce - Meningitis, unspecified bruce Forms: - Medication Reconciliation Form bruce - SBAR form bruce Signatures: Dispatcher [employer] EDSrini Cruz MD MD cha Calderon, Audri, RN RN aa5 Maritza Robins RN RN Whitney Obrien RN RN Raysa Barnes RN RN tw2 Corrections: (The following items were deleted from the chart) 15:06 14:30 Adi Mclain [facility] 15:51 13:07 Suicide Screening ([place]) ordered. [facility] ph 19:58 14:30 bruce cg
[2022-01-03 14:37] LABS: SARS-CoV-2 Antigen Rapid Res Negative (Negative)
[2022-01-03] MEDS ORDERED: CEFTRIAXONE 1000 MG/VIAL ONE (14:40)
[2022-01-03] MEDS ORDERED: ONDANSETRON 4 MG/2 ML VIAL ONE (14:40)
[2022-01-03] MEDS ORDERED: ACETAMINOPHEN 500 MG TAB ONE (14:40)
[2022-01-03] MEDS ORDERED: NA CHLORIDE 0.9% 1,000 ML ONE ×2 (14:40→15:45)
[2022-01-03] MEDS ORDERED: NA CHLORIDE 0.9% 100 ML ONE (14:40)
[2022-01-03] MEDS ORDERED: FAMOTIDINE 20 MG/2 ML VIAL IV ONE (14:41)
[2022-01-03 14:56] LABS: ALT/SGPT 31 U/L (12-78); AST/SGOT 21 U/L (15-37); Albumin 3.8 g/dL (3.4-5.0); Alkaline Phosphatase 84 U/L (45-117); BUN Blood Urea Nitrogen 17 mg/dL (7-18); Bicarbonate 27 mmol/L (21-32); Bilirubin Direct 0.1 mg/dL (0-0.2); Bilirubin Total 0.2 mg/dL (0.2-1.0); Glomerular Filtration Rate 111 ml/min (=/>90); Glucose Level 106 mg/dL (74-106); Magnesium 2.1 mg/dL (1.8-2.4); NT PRO-BNP 115 pg/mL (<125); Potassium 4.2 mmol/L (3.5-5.1); Sodium Level 131 mmol/L (136-145); Troponin High Sensitivity 4.8 pg/mL (<58.9)
[2022-01-03] MEDS ORDERED: MORPHINE 4 MG/ML SYR ONE ×2 (15:45→18:00)
[2022-01-03 15:58] LABS: CSF Glucose 57 mg/dL (40-70)
[2022-01-03 16:18] LABS: Appearance CLEAR (CLEAR); Body Fluid Source CSF; Color of fluid Colorless (COLORLESS)
[2022-01-03 16:19] LABS: Body Fluid WBC 1 /mm^3
[2022-01-03 16:21] LABS: Appearance CLEAR (CLEAR); Body Fluid Source CSF; Body Fluid WBC 3 /mm^3; Color of fluid Colorless (COLORLESS); Fluid Total Volume 4 ml
--- NOTE | 2022-01-03 16:34 | P.HP ---
Certification for Inpatient Patient admitted to: Inpatient With expected LOS: >2 Midnights Patient will require the following post-hospital care: None Practitioner: I am a practitioner with admitting privileges, knowledge of patient current condition, hospital course, and medical plan of care. Services: Services provided to patient in accordance with Admission requirements found in Title 42 Section 412.3 of the Code of Federal Regulations Patient History Date of Service: 01/03/22 Primary Care Provider: Dr. Harris Reason for admission: Headache, concern for Meningitis History of Present Illness: Mr. Ar Flores is a 41 year old male who has a past medical history of seizure disorder, anxiety, and post-traumatic stress disorder who presents to the [facility] Emergency Department for a headache. He reports that, about 1 week ago, he had a unwitnessed grand mal seizure, for which she did not seek any medical attention. Since that episode, he has had a persistent headache. He localizes it to the top of his head and states that it is nonradiating. He denies any obvious inciting or alleviating factors. He has tried taking sumatriptan, without alleviation of his symptoms. He currently grades the pain a 7/10 in severity. He states that the pain has been associated with clear rhinorrhea, cough, chills, night sweats, and a fever up to 101 F. On review of systems, he denies any dizziness, syncope, chest pain, palpitations, shortness of breath, wheezing, abdominal pain, nausea/vomiting, diarrhea, constipation, hematochezia, melena, dysuria, hematuria, myalgia, or any other symptoms. He presented to the Emergency Department for further evaluation. Upon presentation, his vital signs were notable for a heart rate of 109 bpm and a blood pressure of 159/101. His laboratory studies were stable. Blood cultures x 2 were obtained. EKG revealed normal sinus rhythm without STEMI criteria. Chest x-ray revealed, "no focal mass or consolidations seen. Baseline interstitial pattern could potentially mask minimal edema or infiltrate." CT head revealed, "negative non-contrast CT head examination." He was admitted to the General Internal Medicine service for further evaluation. Allergies tramadol Adverse Reaction (Severe, Verified 11/06/16 10:35) LOWER TRESHOLD AND AND SEIZURE POSSIBLE meperidine [From Demerol] Adverse Reaction (Verified 11/06/16 10:35) LOWER THRESHOLD ANDSEIZURE POSSIBLE NSAIDS Allergy (Uncoded 11/06/16 07:10) Unknown Pertussis Vaccines Allergy (Uncoded 11/06/16 07:10) Unknown Home medications list reviewed: Yes Home Medications: Codeine/APAP [Tylenol W/Codeine #3 tab] 1 tab PO Q6HP PRN 11/05/16 Eszopiclone [Lunesta] 3 mg PO BEDTIME 11/05/16 LORazepam [Ativan] 1 mg PO PRN PRN 11/05/16 Levetiracetam [Keppra] 1,500 mg PO BID 11/05/16 Sertraline [Zoloft] 200 mg PO DAILY 11/05/16 Topiramate [Topamax] 150 mg PO BID 11/05/16 Trazodone [Desyrel] 200 mg PO BEDTIME 11/05/16 - Past Medical/Surgical History -: Seizure Disorder -: Anxiety -: PTSD -: Right Ankle Surgery -: Cervical Spine Fusion - Family History Family History: Reviewed- Non-Contributory - Social History Smoking Status: Heavy Tobacco smoker (>10 cigarettes/day) Counseled patient to stop smoking for: less than 10 minutes Alcohol use: Yes CD- Drugs: No Caffeine use: No Place of Residence: Home (Prior heavy alcohol use. Last drink 10/13/2021) Review of Systems General: Fever, Chills Eyes: Unremarkable ENT: Nose Discharge Respiratory: Cough Cardiovascular: Unremarkable Gastrointestinal: Unremarkable Genitourinary: Unremarkable Musculoskeletal: Unremarkable Integumentary: Unremarkable Neurological: Other (headache), As per HPI Physical Examination - Vital Signs Temperature: 97.7 F Blood Pressure: 159/101 Pulse: 109 Respirations: 17 Pulse Ox (%): 98 (room air) - Physical Exam General: Alert, In no apparent distress, Oriented x3, Other (anxious affect) HEENT: Atraumatic, PERRLA, Mucous membr. moist/pink, Other (neck slightly rigid - possibly due to cervical fusion?), EOMI, Sclerae nonicteric Neck: Supple, JVD not distended Respiratory: Clear to auscultation bilaterally, Normal air movement Cardiovascular: No edema, Normal S1 S2, No gallops, No rubs, No murmurs, Other (tachycardic rate) Gastrointestinal: Normal bowel sounds, Soft and benign, Non-distended, No tenderness, No rebound, No guarding Musculoskeletal: No clubbing Integumentary: No rashes Neurological: Normal speech, Normal strength at 5/5 x4 extr, Normal tone, Sensation intact, Cranial nerves 3-12 intact, Normal affect - Studies Laboratory Data (last 24 hrs) 01/03/22 14:10: PT 10.3, INR 0.94, APTT 30.6 01/03/22 14:10: WBC 3.6 L, Hgb 14.5, Hct 42.3, Plt Count 193 01/03/22 14:10: Sodium 131 L, Potassium 4.2, BUN 17, Creatinine 0.90, Glucose 106, Magnesium 2.1, Total Bilirubin 0.2, AST 21, ALT 31, Alkaline Phosphatase 84 Assessment and Plan - Plan # Intractable Headache with History of Migraine Headaches # SIRS Criteria (Tachycardia, Leukopenia) with no obvious bacterial infectious source Suspect tachycardia to be secondary to pain. Leukopenia is mild, but possibly secondary to anti-epileptic therapy? Initially, there was concern for meningitis in the ED; however, CSF studies do not support this diagnosis - Consulted Neurology and spoke with Dr. Magana - recommendations appreciated - No neurologic deficits on my examination - CSF results: WBC 1, glucose 57, protein 69, RBC 16, neutrophils negative, lymphocyte negative, monocytes negative - Added CSF cytology, AFB, VDRL, electrophoresis, HSV - These findings are not consistent with meningitis, so we will discontinue antibiotics at this time - His low grade fevers, rhinorrhea, and cough suggest possible viral syndrome - Ordered RSV/influenza nasal swab - q4 hour neurologic checks # Seizure Disorder - Reports seizure-like episode about one week ago - Consulted Neurology and spoke with Dr. Magana - recommendations appreciated - Continue home eslicarbazepine 1600 mg daily # Anxiety # Post-Traumatic Stress Disorder - Continue home sertraline, buspirone Troy Padilla M.D. Discharge Plan: Home Plan to discharge in: 48 Hours - Advance Directives Does patient have a Living Will: No Does patient have a Durable POA for Healthcare: No
[2022-01-03] MEDS ORDERED: ACETAMINOPHEN 500 MG TAB PO PRN ×2 (16:36→23:04)
[2022-01-03 18:02] LABS: Barbiturates NEGATIVE (NEGATIVE); Benzodiazepines POSITIVE (NEGATIVE); Cocaine NEGATIVE (NEGATIVE); METHAMPHETAM NEGATIVE (NEGATIVE); Methadone NEGATIVE (NEGATIVE); Opiates NEGATIVE (NEGATIVE); Phencyclidine NEGATIVE (NEGATIVE); THC Cannibis NEGATIVE (NEGATIVE)
[2022-01-03] MEDS ORDERED: BUSPIRONE HCL 5 MG TABLET PO SCH (21:00)
[2022-01-03] MEDS: ESLICARBAZEPINE 800 MG PO SCH (21:00)
[2022-01-03 22:32] VITALS: BMI 28.1
[2022-01-03] MEDS ORDERED: HYDRALAZINE HCL 20 MG/ML VIAL IV PRN ×2 (23:03→23:04)
[2022-01-03] MEDS: HYDROCODONE/APAP 7.5/325 MG TAB PO PRN (23:21)
[2022-01-03 23:44] VITALS: O2SAT 99
[2022-01-04] MEDS ORDERED: TIZANIDINE 4 MG TABLET PO PRN (01:08)
[2022-01-04 03:42] LABS: Absolute Lymphocytes (CBC) 0.6 K/uL (0.7-4.9); Hematocrit 40.8 % (39.6-49.0); Lymphocytes % 15.3 % (15.3-44.8); MCV 89.7 fL (80-100); MPV 7.7 fL (7.6-11.3); RBC Red Blood Cell Count 4.54 M/uL (4.33-5.43)
[2022-01-04 03:59] LABS: Magnesium 1.9 mg/dL (1.8-2.4); Phosphorus 3.1 mg/dL (2.5-4.9); Potassium 3.8 mmol/L (3.5-5.1)
[2022-01-04] MEDS: HYDROCODONE/APAP 7.5/325 MG TAB PO PRN (07:21)
[2022-01-04 08:27] VITALS: BP 148/89; TEMP 97
[2022-01-04] MEDS: ESLICARBAZEPINE 800 MG PO SCH (08:28)
[2022-01-04] MEDS ORDERED: ESLICARBAZEPINE 800 MG PO SCH (09:00)
[2022-01-04] MEDS ORDERED: SERTRALINE HCL 100 MG TAB PO SCH (09:00)
--- NOTE | 2022-01-04 09:04 | P.DS ---
Admission Date: 01/03/22 Discharge Date: 01/04/22 Primary Care Provider: Dr. Harris Disposition: AMA-LEFT AGAINST MEDICAL ADVIC Discharge Condition: FAIR Reason for Admission: Headache, concern for Meningitis Consultations: 1. Neurology Hospital Course: DIAGNOSES: # Intractable Headache with History of Migraine Headaches # SIRS Criteria (Tachycardia, Leukopenia) with no obvious bacterial infectious source # Seizure Disorder # Anxiety # Post-Traumatic Stress Disorder HOSPITAL COURSE: Mr. Ar Flores is a 41 year old male with a past medical history significant for seizure disorder, anxiety, and posttraumatic stress disorder who was admitted to the [facility] on 01/03/2022 for an intractable headache and intermittent fevers. He was admitted to the Medicine service for further evaluation. While in the emergency department, a lumbar puncture was completed and his CSF studies were notable for a protein of 69. Neurology was consulted and I spoke with Dr. Magana. He recommended additional CSF studies including CSF cytology, AFB, VDRL, electrophoresis, HSV. This morning on rounds, he reported that his headache has improved and he would like to leave the hospital at this time. I advised him that, ideally, we should wait to see what his CSF studies reveal. However, he stated that he is not interested in staying since he is symptomatically better. I informed him that leaving the hospital prematurely may result in serious consequences including, but not limited to, worsening headaches, delayed treatment of a possible [employer] infection, seizures, delirium, coma, and . He stated that he wishes to go home and be with his family and that he accepts these risks. Charge nurse STEPHANIE Cunha was present for this conversation and he signed the AGAINST MEDICAL ADVICE form. I highly advised that he maintain droplet precautions at home with a mask, gloves, and good hand hygiene around his family members should his CSF returned positive for a contagious organism. Based on his ability to understand his disease process, understand the consequences of not pursuing therapy, communicate that he would like to be discharged, and his ability to explain his rationale for being discharged, we believe that he has medical decision making capacity. He was given the opportunity to ask questions and reported no further questions. Furthermore, all questions were answered to the best of my ability. Today, I personally spent 20 minutes with him, of which greater than 50% of the time was spent in patient education, counseling, and coordination of care as described above. - Physical Exam General: Alert, In no apparent distress, Oriented x3 HEENT: Atraumatic, PERRLA, Mucous membr. moist/pink, EOMI, Sclerae nonicteric Neck: Supple, JVD not distended Respiratory: Clear to auscultation bilaterally, Normal air movement Cardiovascular: No edema, Regular rate/rhythm, Normal S1 S2, No gallops, No rubs, No murmurs Gastrointestinal: Normal bowel sounds, Soft and benign, Non-distended, No tenderness, No rebound, No guarding Musculoskeletal: No clubbing Integumentary: No rashes Neurological: Normal speech, Normal strength at 5/5 x4 extr, Normal tone, Sensation intact, Cranial nerves 3-12 intact, Normal affect Vital Signs/Physical Exam: Temp Pulse Resp BP Pulse Ox 97 F 89 20 148/89 H 97 01/04/22 08:00 01/04/22 08:00 01/04/22 08:00 01/04/22 08:00 01/04/22 08:00 Laboratory Data at Discharge: WBC 4.0 K/uL (4.3-10.9) L 01/04/22 03:13 Hgb 14.3 g/dL (13.6-17.9) 01/04/22 03:13 Hct 40.8 % (39.6-49.0) 01/04/22 03:13 Plt Count 168 K/uL (152-406) 01/04/22 03:13 PT 10.3 SECONDS (9.5-12.5) 01/03/22 14:10 INR 0.94 01/03/22 14:10 APTT 30.6 SECONDS (24.3-36.9) 01/03/22 14:10 Sodium 131 mmol/L (136-145) L 01/04/22 03:16 Potassium 3.8 mmol/L (3.5-5.1) 01/04/22 03:16 BUN 11 mg/dL (7-18) 01/04/22 03:16 Creatinine 0.83 mg/dL (0.55-1.3) 01/04/22 03:16 Glucose 107 mg/dL (74-106) H 01/04/22 03:16 Phosphorus 3.1 mg/dL (2.5-4.9) 01/04/22 03:16 Magnesium 1.9 mg/dL (1.8-2.4) 01/04/22 03:16 Total Bilirubin 0.2 mg/dL (0.2-1.0) 01/03/22 14:10 AST 21 U/L (15-37) 01/03/22 14:10 ALT 31 U/L (12-78) 01/03/22 14:10 Alkaline Phosphatase 84 U/L (45-117) 01/03/22 14:10 Home Medications: RX: Codeine/APAP [Tylenol #3*] 1 tab PO Q6HP PRN 11/05/16 RX: Sertraline [Zoloft*] 200 mg PO DAILY 11/05/16 RX: Albuterol Inhaler [Ventolin Inhaler*] 60 puff IN Q4HR PRN 01/03/22 RX: Eslicarbazepine Acetate [Aptiom] 1,600 mg PO BEDTIME 01/03/22 RX: Pantoprazole Sodium [Protonix] 40 mg PO DAILY 01/03/22 RX: Sumatriptan Succinate [Imitrex] 25 mg PO TID 01/03/22 RX: diazePAM [Valtoco] 20 mg NS PRN PRN 01/03/22 RX: Buspirone HCl [Buspar*] 10 mg PO BEDTIME tab 01/04/22 Physician Discharge Instructions: 1. Please schedule a follow-up with your PCP in 3-5 days If you develop any new symptoms including, but not limited to, worsening fever, chills, headache, dizziness, passing out, chest pain, palpitations, vomiting, diarrhea, or anything you find concerning - please return to the Emergency Department for further evaluation. Please call [phone] if you have any questions regarding your care. Diet: Regular Activity: Ad aruna Followup: Kalen Carlson MD [OUTSIDE PHYSICIAN] - Time spent managing pt's care (in minutes): 20
--- NOTE | 2022-01-04 10:33 | EKG ---
Test Date: 2022-01-03 Test Time: 13:52:22 Counseling Aide: HOME MEASUREMENT RESULTS: Intervals: Rate: 84 [place]: 144 QRSD: 88 QT: 372 QTc: 439 [place]: P: 51 [place]: 144 QRS: 55 T: 59 INTERPRETIVE STATEMENTS: Normal sinus rhythm Normal ECG Compared to ECG 10/11/2021 16:06:20 No significant changes Electronically Signed On 01-04-22 10:31:26 CDT by Burke Li
[2022-01-04] MEDS ORDERED: ENOXAPARIN 40 MG/0.4 ML SQ SCH (21:00)
== END 2022-01-04 09:35 | disposition left against medical advice (07) | DRG 103 ==
LOC: ER 12:24 → ERHOLD 16:34 → 2ND 21:18
PROVIDERS: ADMIT Internal Medicine; ATTEND Internal Medicine
PROC: 009U3ZX Drainage of Spinal Canal, Percutaneous Approach, Diagnostic (ICD-10-PCS; principal; 2022-01-03)
DX: R51.9 Headache, unspecified (principal); R65.10 Systemic inflammatory response syndrome (SIRS) of non-infectious origin without acute organ dysfunction; G40.909 Epilepsy, unspecified, not intractable, without status epilepticus; F41.9 Anxiety disorder, unspecified; F43.10 Post-traumatic stress disorder, unspecified; Z87.898 Personal history of other specified conditions; Z53.29 Procedure and treatment not carried out because of patient's decision for other reasons; Z20.822 Contact with and (suspected) exposure to COVID-19; F17.210 Nicotine dependence, cigarettes, uncomplicated
CPT/HCPCS: 36415; 62270; 70450; 71045; 80048; 80076; 80307; 80320; 80329; 82945; 83605; 83735; 83880; 84100; 84145; 84157; 84484; 85025; 85610; 85730; 86592; 86695; 87015; 87040; 87070; 87116; 87206; 87801; 87804; 87807; 87811; 89050; 93005; 96361; 96365; 96375; 99285; J0360; J2405; J7030

== ENCOUNTER 2022-01-08 11:21 | Emergency (ER) | payer OTHER ==
--- OUTSIDE RECORDS SUMMARY | 2022-01-08 11:24 | XMS REPORT | Continuity of Care Document ---
:1980 Author Organization [facility] Address [address] [place] [address] [address]. [address] [place] [address] Care Team Providers Name Role Phone CHRISSIE SETHI Attending Clinician Unavailable GIULIA CLAROS Attending Clinician Unavailable IHDE_G Attending Clinician Unavailable IHDE_G Admitting Clinician Unavailable GIULIA CLAROS Admitting Clinician Unavailable Payers Payer Name Policy Type Policy Number Effective Date Expiration Date S ournasir EAST - [employer] [id number] - PRIME () Problems Condition Condition Condition [...] Date Stop Date Source Heavy Tobacco Smoker [facility] Medications Ordered Filled Start [...] Source BP Diastolic 2019-02-24 00:00:00 76 mm[facility]Hg] [facility] Height 2019-02-24 00:00:00 68 [in_i] [facility] BMI (Body Mass 2019-02-24 00:00:00 30.1 kg/m2 [facility] BP Systolic 2019-02-24 00:00:00 148 mm[Hg] [facility] Body Weight 2019-02-24 00:00:00 198 [lb_av] [facility] BP Diastolic 2019-02-19 00:00:00 89 mm[Hg] [facility] Height 2019-02-19 00:00:00 68 [in_i] [facility] BMI (Body Mass 2019-02-19 00:00:00 30.1 kg/m2 [facility] Group BP Systolic 2019-02-19 00:00:00 154 mm[Hg] [facility] Body Weight 2019-02-19 00:00:00 3168 [oz_av] [facility] Procedures Procedure Date / Time Performed Performing Clinician [facility] e Procedure on Ankle [facility] Primary [facility] Knee [facility] Shoulder [facility] Encounters Start End Encounter Admission Attending Care Care Encounter Source Date/Time Date/Time Type Type Clinicians Facility Department ID 2022-01-02 2022-01-02 Outpatient [facility] [id number] [place] 00:00:00 00:00:[address] 2021-12-21 2021-12-21 Outpatient SUSTACHE, [facility] [id number] [place] 00:00:00 00:00:00 CH[address]E [address] 2021-08-14 2021-08-14 Outpatient SUSTACHE, [facility] [id number] [place] 00:00:00 00:00:00 CHRISSIE [address] 2021-07-18 2021-07-18 Outpatient SUSTACHE, [facility] [id number] [place] 00:00:00 00:00:00 CHRISSIE [address] 2021-06-28 2021-06-28 Outpatient GIULIA CLAROS [facility] [id number] [place] 00:00:00 00:00:[address] 2020-12-27 2020-12-27 Outpatient GIULIA CLAROS [facility] [id number] [place] 00:00:00 00:00:[id number] 2020-04-20 2020-04-20 Outpatient IHDE_G [facility] [id number] [place] 02:22:00 02:22:00 [id number] 2019-10-28 2019-10-28 Outpatient GIULIA CLAROS [facility] [id number] [place] 00:00:00 00:00:[address] 2019-05-04 2019-05-08 Inpatient HARLAN GIULIA [facility] [id number] [place] 00:00:00 00:00:[address] 2019-02-24 2019-02-24 Bj [facility] [place] - [id number] [place] 00:00:00 00:00:00 Daniel Melo MD: [facility] [address], [place] [address] , Ph. [phone] 2019-02-19 2019-02-19 Tank Perez [facility] [place] - [id number] [place] 00:00:00 00:00:00 MD Jesus: [facility] [address] [place] [address] - [address], [facility] [address] , Ph. Results This patient has no known results.
[2022-01-08] MEDS ORDERED: DIAZEPAM 5 MG TABLET ONE (12:25)
[2022-01-08 13:23] LABS: Absolute Lymphocytes (CBC) 0.8 K/uL (0.7-4.9); Lymphocytes % 12.7 % (15.3-44.8); MCV 86.2 fL (80-100); MPV 7.8 fL (7.6-11.3); RBC Red Blood Cell Count 4.64 M/uL (4.33-5.43)
--- NOTE | 2022-01-08 13:28 | RAD REPORT ---
EXAM DESCRIPTION: CT - Head Brain W/Wo Con - 01/08/2022 1:19 pm CLINICAL HISTORY: continued khan and stiff neck, cultures neg COMPARISON: CT head 01/03/2022 TECHNIQUE: Axial 5 mm thick images of the head were obtained prior to and following non-ionic IV con trast. All CT scans are performed using dose optimization technique as appropriate and may include automated exposure control or mA/KV adjustment according to patient size. FINDINGS: No intracranial hemorrhage, mass, edema or shift of mid-line structures. No acute infarcti on changes seen. No abnormal extra-axial fluid collections. Post-contrast images show no abnormal enhancement of the brain parenchyma or dura. No vascular abnormality identifiable. . Mastoid air cells and visualized portions of the paranasal sinuses are clear. No acute bony findings. IMPRESSION: Negative contrast-enhanced CT head examination. No identifiable changes from January 03 imaging.
[2022-01-08 13:39] LABS: C-Reactive Protein 31.4 mg/L (<3.00); Potassium 3.7 mmol/L (3.5-5.1)
[2022-01-08] MEDS ORDERED: NA CHLORIDE 0.9% 500 ML ONE (14:09)
[2022-01-08] MEDS ORDERED: MAGNESIUM SULFATE 1 gm IVPB 1 GM/100 ML BAG IV ONE (14:11)
[2022-01-08] MEDS ORDERED: PROPRANOLOL HCL 10 MG TAB PO SCH (15:00)
--- NOTE | 2022-01-08 15:24 | EDPHYS ---
Physician Documentation [facility] Name: Ar Flores Age: 41 yrs Sex: Male : 1980 Arrival Date: 01/08/2022 Time: 11:23 Bed 9 Private MD: ED Physician Lucas Mclain HPI: 01/08 12:45 This 41 yrs old Male presents to ER via Ambulatory with complaints of Stiff Neck. snw 12:45 The patient or guardian complains of pain, that is acute, spasm, tenderness. The snw symptoms are located diffusely. Onset: The symptoms/episode began/occurred 1 week(s) ago, and became persistent no fever x 36 hours, LP last week. Context: The neck injury/problem resulted from from unknown cause. Associated signs and symptoms: Pertinent positives: headache, vomiting, joint pain. The pain does not radiate. Severity of symptoms: At their worst the symptoms were moderate. It is unknown whether or not the patient has had similar symptoms in the past. The patient has been recently seen by a physician: The patient has been recently seen at the [facility] Emergency Department, last week, for similar complaints. Historical: - Allergies: 11:45 Demerol; seizure inducing; jl7 11:45 meperidine; jl7 11:45 NSAIDS; jl7 11:45 Pertussis Vaccines; jl7 11:45 tramadol; seizure inducing; jl7 - PMHx: 11:45 Anxiety; depressive disorder; Hypertensive disorder; PTSD; Seizures; jl7 - Immunization history:: Client reports having NOT received the Covid vaccine. - Social history:: Smoking status: Patient reports the use of cigarette tobacco products, smokes one pack cigarettes per day. ROS: 12:40 Eyes: Negative for injury, pain, redness, and discharge. snw 12:40 Cardiovascular: Negative for chest pain, palpitations, and edema, Respiratory: Negative for shortness of breath, cough, wheezing, and pleuritic chest pain. 12:40 Back: Negative for injury and pain, : Negative for injury, bleeding, discharge, and swelling. 12:40 Skin: Negative for injury, rash, and discoloration. 12:40 Constitutional: Positive for body aches, malaise, neck stiffness, vomiting. 12:40 ENT: Positive for 12:40 ENT: Positive for sore throat. 12:40 Neck: Positive for pain with movement, stiffness. 12:40 Abdomen/GI: Positive for nausea, vomiting. 12:40 MS/extremity: Positive for wrists, knees with achiness. 12:40 Neuro: Positive for headache, hx of seizures takes apixa. Exam: 12:38 Respiratory: Lungs have equal breath sounds bilaterally, clear to auscultation and snw percussion. No rales, rhonchi or wheezes noted. No increased work of breathing, no retractions or nasal flaring. Abdomen/GI: Soft, non-tender, with normal bowel sounds. No distension or tympany. No guarding or rebound. No evidence of tenderness throughout. Back: No spinal tenderness. No costovertebral tenderness. Full range of motion. Skin: Warm, dry with normal turgor. Normal color with no rashes, no lesions, and no evidence of cellulitis. MS/ Extremity: Pulses equal, no cyanosis. Neurovascular intact. Full, normal range of motion. Psych: Awake, alert, with orientation to person, place and time. Behavior, mood, and affect are within normal limits. 12:38 Head/Face: Normocephalic, atraumatic. Eyes: Pupils equal round and reactive to light, extra-ocular motions intact. Lids and lashes normal. Conjunctiva and sclera are non-icteric and not injected. Cornea within normal limits. Periorbital areas with no swelling, redness, or edema. ENT: Nares patent. No nasal discharge, no septal abnormalities noted. Tympanic membranes are normal and external auditory canals are clear. Oropharynx with no redness, mild uvular swelling, no masses, exudates, or evidence of obstruction, uvula midline. Mucous membranes moist. Neck: Trachea midline, no thyromegaly or masses palpated, and no cervical lymphadenopathy. Supple, full range of motion without nuchal rigidity, or vertebral point tenderness. No Meningismus. Chest/axilla: Normal chest wall appearance and motion. Nontender with no deformity. No lesions are appreciated. 12:38 Constitutional: The patient appears in no acute distress, alert, awake, uncomfortable. 12:38 Cardiovascular: Rate: tachycardic, Rhythm: regular, Heart sounds: normal, JVD: is not appreciated. 12:38 Neuro: Orientation: is normal, Mentation: is normal, Babinski testing is normal, seizure activity, is not displayed by the patient, Abnormal movements: there are no abnormal movements, nuchal rigidity in all directions. Vital Signs: 11:43 BP 149 / 105; Pulse 113; Resp 15; Temp 97.4; Pulse Ox 93% ; Weight 83.91 kg; Height 5 jl7 ft. 8 in. (172.72 cm); Pain 9/10; 14:57 BP 165 / 95; Pulse 89; Resp 16; Pulse Ox 99% on R/A; hb 11:43 Body Mass Index 28.13 (83.91 kg, 172.72 cm) jl7 MDM: 12:06 Patient medically screened. snw 15:26 Data reviewed: vital signs, nurses notes. Data interpreted: Pulse oximetry: on room air snw is 99 %. Interpretation: normal. Counseling: I had a detailed discussion with the patient and/or guardian regarding: the historical points, exam findings, and any diagnostic results supporting the discharge/admit diagnosis, the presence of at least one elevated blood pressure reading (>120/80) during this emergency department visit, lab results, radiology results, the need for outpatient follow up, to return to the emergency department if symptoms worsen or persist or if there are any questions or concerns that arise at home. Response to treatment: the patient's symptoms have markedly improved after treatment. 01/08 12:38 Order name: Flu; Complete Time: 14:56 snw 01/08 12:38 Order name: Strep; Complete Time: 13:58 snw 01/08 12:38 Order name: CBC with Diff; Complete Time: 14:56 snw 01/08 12:38 Order name: Chem 7; Complete Time: 13:44 snw 01/08 12:38 Order name: CPK; Complete Time: 13:44 snw 01/08 12:38 Order name: Blood Culture Adult (2) snw 01/08 12:38 Order name: Sed Rate; Complete Time: 13:44 snw 01/08 12:38 Order name: CRP; Complete Time: 13:44 snw 01/08 12:38 Order name: Rpr snw 01/08 12:41 Order name: Lyme Ab Reflex IgM,IgG EDMS 01/08 12:41 Order name: CBC with Automated Diff; Complete Time: 13:44 EDMS 01/08 12:42 Order name: COVID-19 SARS RT PCR (Document "Date of Onset" if Symptomatic) bd 01/08 13:46 Order name: Add On-Lab snw 01/08 12:47 Order name: CT Head Brain w/wo Con; Complete Time: 13:31 snw 01/08 13:57 Order name: Throat Culture EDMS 01/08 14:08 Order name: Magnesium; Complete Time: 14:56 EDMS Administered Medications: 12:23 Drug: Valium (diazepam) 10 mg Route: PO; hb 14:15 Drug: NS 0.9% 500 ml Route: IV; Rate: bolus; Site: left antecubital; kb3 15:19 Follow up: IV Status: Completed infusion; IV converted to saline lock; IV Intake: 500ml kb3 15:20 Follow up: Response: No adverse reaction kb3 14:15 Drug: Magnesium Sulfate 1 grams Route: IVPB; Infused Over: 1 hrs; Site: left kb3 antecubital; 15:19 Follow up: IV Status: Completed infusion; IV Intake: 100ml kb3 15:20 Follow up: Response: No adverse reaction kb3 14:57 Drug: Propranolol 20 mg Route: PO; hb 15:53 Drug: Benadryl (diphenhydrAMINE) 12.5 mg Route: IVP; Site: left antecubital; hb 15:54 Follow up: Response: Medication administered at discharge. hb Disposition Summary: 01/08/22 15:23 Discharge Ordered Location: Home snw Condition: Stable snw Diagnosis - Headache snw - Spasmodic torticollis snw Followup: snw - With: Emergency Department - When: As needed - Reason: Worsening of condition Followup: snw - With: Private Physician - When: 2 - 3 days - Reason: Recheck today's complaints, Continuance of care, Re-evaluation by your physician Discharge Instructions: - Discharge Summary Sheet snw - Cervicogenic Headache snw - Hyponatremia snw - Rehydration, Adult snw - Form - Headache Record snw Forms: - Medication Reconciliation Form snw - Thank You Letter snw - Antibiotic Education snw - Prescription Opioid Use snw Prescriptions: - Doxycycline Hyclate 100 mg Oral Tablet - take 1 tablet by ORAL route every 12 hours; 28 tablet; Refills: 0, Product snw Selection Permitted - orphenadrine citrate 100 mg Oral Tablet Sustained Release - take 1 tablet by ORAL route 2 times per day As needed; 20 tablet; Refills: 0, snw Product Selection Permitted - promethazine 25 mg Oral Tablet - take 1 tablet by ORAL route every 6 hours As needed; 20 tablet; Refills: 0, snw Product Selection Permitted - Prednisone 20 mg Oral Tablet - take 2 tablets by ORAL route once daily for 5 days; 10 tablet; Refills: 0, snw Product Selection Permitted Addendum: 01/09/2022 19:47 Co-signature as Attending Physician, Lucas Mclain MD. r n Signatures: Dispatcher [employer] EDMS MarissaGema, KNIFE EDGER-C KNIFE EDGER-Csnw Lucas Mclain MD MD rn Melia Cota, RN RN Melida Mark RN RN jl7 Caitie Arteaga RN RN kb3 Corrections: (The following items were deleted from the chart) 01/08 12:45 12:38 Head/Face: Normocephalic, atraumatic. Eyes: Pupils equal round and reactive to snw light, extra-ocular motions intact. Lids and lashes normal. Conjunctiva and sclera are non-icteric and not injected. Cornea within normal limits. Periorbital areas with no swelling, redness, or edema. ENT: Nares patent. No nasal discharge, no septal abnormalities noted. Tympanic membranes are normal and external auditory canals are clear. Oropharynx with no redness, swelling, or masses, exudates, or evidence of obstruction, uvula midline. Mucous membranes moist. Neck: Trachea midline, no thyromegaly or masses palpated, and no cervical lymphadenopathy. Supple, full range of motion without nuchal rigidity, or vertebral point tenderness. No Meningismus. Chest/axilla: Normal chest wall appearance and motion. Nontender with no deformity. No lesions are appreciated. snw
--- NOTE | 2022-01-08 15:24 | ER ---
Nurse's Notes [facility] Name: Ar Flores Age: 41 yrs Sex: Male : 1980 Arrival Date: 01/08/2022 Time: 11:23 Bed 9 Private MD: Diagnosis: Headache;Spasmodic torticollis Presentation: 01/08 11:43 Chief complaint: Patient states: Admitted last week for possible meningitis, told to jl7 return to ER if GIFFORD and neck stiffness did not improve and it's not improving. Coronavirus screen: At this time, the client does not indicate any symptoms associated with coronavirus-19. Ebola Screen: No symptoms or risks identified at this time. Initial Sepsis Screen: Does the patient meet any 2 criteria? No. Patient's initial sepsis screen is negative. Does the patient have a suspected source of infection? No. Patient's initial sepsis screen is negative. Risk Assessment: Do you want to hurt yourself or someone else? Patient reports no desire to harm self or others. Onset of symptoms was January 01, 2022. 11:43 Method Of Arrival: Ambulatory [facility] 11:43 Acuity: TREY 3 [facility] Triage Assessment: 11:45 General: Appears in no apparent distress. uncomfortable, Behavior is cooperative, jl7 anxious. Pain: Complains of pain in posterior neck Pain currently is 9 out of 10 on a pain scale. Historical: - Allergies: 11:45 Demerol; seizure inducing; jl7 11:45 meperidine; jl7 11:45 NSAIDS; 7 11:45 Pertussis Vaccines; 7 11:45 tramadol; seizure inducing; jl7 - PMHx: 11:45 Anxiety; depressive disorder; Hypertensive disorder; PTSD; Seizures; jl7 - Immunization history:: Client reports having NOT received the Covid vaccine. - Social history:: Smoking status: Patient reports the use of cigarette tobacco products, smokes one pack cigarettes per day. Screenin:18 Abuse screen: Denies threats or abuse. Denies injuries from another. Nutritional hb screening: No deficits noted. Tuberculosis screening: No symptoms or risk factors identified. Fall Risk None identified. Assessment: 13:02 General: Appears in no apparent distress. uncomfortable, Behavior is calm, cooperative. hb Neuro: Level of Consciousness is awake, alert, obeys commands, Oriented to person, place, time, situation. Cardiovascular: Patient's skin is warm and dry. Respiratory: Respiratory effort is even, unlabored, Respiratory pattern is regular, symmetrical. GI: No signs and/or symptoms were reported involving the gastrointestinal system. : No signs and/or symptoms were reported regarding the genitourinary system. EENT: No signs and/or symptoms were reported regarding the EENT system. Derm: Skin is pink, warm \T\ dry. Musculoskeletal: No signs and/or symptoms reported regarding the musculoskeletal system. 14:06 Reassessment: Patient appears in no apparent distress at this time. Patient and/or hb family updated on plan of care and expected duration. Pain level reassessed. Patient is alert, oriented x 3, equal unlabored respirations, skin warm/dry/pink. 14:58 Reassessment: Patient appears in no apparent distress at this time. Patient and/or hb family updated on plan of care and expected duration. Pain level reassessed. Patient is alert, oriented x 3, equal unlabored respirations, skin warm/dry/pink. Vital Signs: 11:43 BP 149 / 105; Pulse 113; Resp 15; Temp 97.4; Pulse Ox 93% ; Weight 83.91 kg; Height 5 jl7 ft. 8 in. (172.72 cm); Pain 9/10; 14:57 BP 165 / 95; Pulse 89; Resp 16; Pulse Ox 99% on R/A; hb 11:43 Body Mass Index 28.13 (83.91 kg, 172.72 cm) jl7 ED Course: 11:23 Patient arrived in ED. mr 11:45 Triage completed. jl7 11:45 Arm band placed on right wrist. jl7 12:06 Gema Ann FNP-C is PHCP. snw 12:06 Lucas Mclain MD is Attending Physician. snw 12:08 Caitie Arteaga, STEPHANIE is Primary Nurse. kb3 13:12 Inserted saline lock: 20 gauge in left antecubital area, using aseptic technique. Blood hb collected. 13:12 Initial lab(s) drawn, by me, sent to lab. First set of blood cultures drawn by me. hb 13:19 Patient has correct armband on for positive identification. hb 13:21 CT Head Brain w/wo Con In Process Unspecified. EDMS 15:54 No provider procedures requiring assistance completed. IV discontinued, intact, hb bleeding controlled, No redness/swelling at site. Administered Medications: 12:23 Drug: Valium (diazepam) 10 mg Route: PO; hb 14:15 Drug: NS 0.9% 500 ml Route: IV; Rate: bolus; Site: left antecubital; kb3 15:19 Follow up: IV Status: Completed infusion; IV converted to saline lock; IV Intake: 500ml kb3 15:20 Follow up: Response: No adverse reaction kb3 14:15 Drug: Magnesium Sulfate 1 grams Route: IVPB; Infused Over: 1 hrs; Site: left kb3 antecubital; 15:19 Follow up: IV Status: Completed infusion; IV Intake: 100ml kb3 15:20 Follow up: Response: No adverse reaction kb3 14:57 Drug: Propranolol 20 mg Route: PO; hb 15:53 Drug: Benadryl (diphenhydrAMINE) 12.5 mg Route: IVP; Site: left antecubital; hb 15:54 Follow up: Response: Medication administered at discharge. hb Medication: 15:54 VIS not applicable for this client. hb Intake: 15:19 IV: 500ml; Total: 500ml. kb3 15:19 IV: 100ml; Total: 600ml. kb3 Outcome: 15:23 Discharge ordered by . snw 15:54 Discharged to home ambulatory. hb 15:54 Condition: stable 15:54 Discharge instructions given to patient, Instructed on discharge instructions, follow up and referral plans. medication usage, Demonstrated understanding of instructions, follow-up care, medications, Prescriptions given X 3. 15:55 Patient left the ED. hb Signatures: Dispatcher [employer] EDND Gema Ann FNP-C FNP-Carolyn Duke Melia Cota, RN RN Melida Joe, RN RN jl7 Caitie Arteaga, RN RN kb3
[2022-01-08] MEDS ORDERED: DIPHENHYDRAMINE 50 MG/ML VIAL ONE (15:47)
[2022-01-08 16:16] VITALS: TEMP 97.4
[2022-01-08 16:27] VITALS: BP 165/95; O2SAT 99
[2022-01-09 04:08] LABS: RPR (Rapid Plasma Reagin) NON-REACT (NON-REACT)
== END 2022-01-08 15:55 | disposition home or self-care (01) ==
LOC: ER 11:21
DX: R51.9 Headache, unspecified (principal); G24.3 Spasmodic torticollis; I10 Essential (primary) hypertension; F17.210 Nicotine dependence, cigarettes, uncomplicated; Z20.822 Contact with and (suspected) exposure to COVID-19; Z88.5 Allergy status to narcotic agent; Z88.6 Allergy status to analgesic agent; Z88.7 Allergy status to serum and vaccine
CPT/HCPCS: 87040 ×2; 87070; 85025; 80048; 36415; 83735; 82550; 86592; 87081; 85652; 86140; 86618; 87804 ×2; 70470; U0003; Q9967; J1200; J3475; J7040; 96365; 96375; 99284

== ENCOUNTER 2023-11-26 15:33 | Emergency (ER) | payer OTHER ==
[2023-11-26] MEDS ORDERED: FENTANYL CITR 100 MCG/2 ML ONE (15:46)
[2023-11-26] MEDS ORDERED: ONDANSETRON 4 MG (ODT) TAB ONE (16:30)
[2023-11-26] MEDS ORDERED: HYDROCODONE/APAP 5/325 MG TAB ONE (16:30)
--- NOTE | 2023-11-26 16:33 | RAD REPORT ---
EXAM DESCRIPTION: RAD - Ankle Left 3 View -11/26/2023 4:21 pm CLINICAL HISTORY: Left ankle pain status post injury FINDINGS: Mildly displaced lateral malleolar fracture. Mild widening medial clear space may indicate a ligamentous injury.
--- NOTE | 2023-11-26 16:48 | ER ---
Nurse's Notes [facility] Name: Ar Flores Age: 43 yrs Sex: Male : 1980 Arrival Date: 11/26/2023 Time: 15:33 Bed Treatment Private MD: Diagnosis: Nondisplaced fracture of lateral malleolus of left fibula Presentation: 11/25 15:37 Chief complaint: Patient states: "About 1 hr ago, I was stepping off porch steps and mb9 heard my left ankle snap.". Coronavirus screen: At this time, the client does not indicate any symptoms associated with coronavirus-19. Ebola Screen: No symptoms or risks identified at this time. Initial Sepsis Screen: Does the patient meet any 2 criteria? No. Patient's initial sepsis screen is negative. Does the patient have a suspected source of infection? No. Patient's initial sepsis screen is negative. Risk Assessment: Do you want to hurt yourself or someone else? Patient reports no desire to harm self or others. Onset of symptoms was November 26, 2023. 15:37 Acuity: TREY 3 mb9 15:37 Method Of Arrival: Carried mb9 Triage Assessment: 15:38 General: Appears uncomfortable, Behavior is cooperative. Pain: Complains of pain in mb9 left foot. EENT: No signs and/or symptoms were reported regarding the EENT system. Neuro: Diehl Agitation-Sedation Scale (RASS): 0 - Alert and Calm Level of Consciousness is awake, alert, obeys commands, Oriented to person, place, time, situation, Appropriate for age. Respiratory: Airway is patent Respiratory effort is even, unlabored, Respiratory pattern is regular, symmetrical. GI: No deficits noted. : No deficits noted. Derm: Skin is pink, warm \\T\\ dry. Musculoskeletal: Bony deformity noted of left foot. Historical: - Allergies: 15:38 Demerol; seizure inducing; mb9 15:38 meperidine; mb9 15:38 NSAIDS; mb9 15:38 Pertussis Vaccines; mb9 15:38 tramadol; seizure inducing; mb9 - PMHx: 15:38 Anxiety; depressive disorder; Hypertensive disorder; PTSD; Seizures; mb9 - PSHx: 15:38 None; mb9 - Immunization history:: Adult Immunizations up to date. - Infectious Disease History:: Denies. - Social history:: Smoking status: Patient denies any tobacco usage or history of. Screenin:35 [facility] ED Fall Risk Assessment (Adult) History of falling in the last 3 months, rs5 including since admission Yes- single mechanical fall (1 pt) Confusion or Disorientation No (0 pts) Intoxicated or Sedated No (0 pts) Impaired Gait Yes (1 pt) Mobility Assist Device Used No (0 pt) Altered Elimination No (0 pt) Score/Fall Risk Level 0 - 2 = Low Risk Oriented to surroundings, Maintained a safe environment. Abuse screen: Denies threats or abuse. Nutritional screening: No deficits noted. Tuberculosis screening: No symptoms or risk factors identified. Assessment: 15:35 General: Appears distressed, uncomfortable, Behavior is cooperative, anxious. Pain: rs5 Complains of pain in left ankle Pain currently is 9 out of 10 on a pain scale. Quality of pain is described as aching, Is continuous. Neuro: Level of Consciousness is awake, alert, obeys commands, Oriented to person, place, time, situation. Cardiovascular: Patient's skin is warm and dry. Rhythm is regular. Respiratory: Airway is patent Respiratory effort is even, unlabored, Respiratory pattern is regular, symmetrical. GI: Abdomen is round non-distended, Abd is soft and non tender X 4 quads. : No signs and/or symptoms were reported regarding the genitourinary system. EENT: No signs and/or symptoms were reported regarding the EENT system. Derm: Skin is intact, Skin is pink, warm \\T\\ dry. Musculoskeletal: Swelling present in left ankle. 16:20 Pain: Complains of pain in left ankle Pain currently is 8 out of 10 on a pain scale. rs5 Quality of pain is described as aching, Is continuous. 16:21 Reassessment: provider notified pt is experiencing pain. rs5 16:55 Reassessment: Patient and/or family updated on plan of care and expected duration. Pain rs5 level reassessed. Patient is alert, oriented x 3, equal unlabored respirations, skin warm/dry/pink. Patient states feeling better. Patient states symptoms have improved. Vital Signs: 15:37 BP 171 / 99; Pulse 125; Resp 20; Temp 98; Pulse Ox 97% on R/A; Weight 95.25 kg; Height mb9 5 ft. 8 in. ; Pain 10/10; 16:43 BP 155 / 94; Pulse 88; Resp 17; Pulse Ox 99% on R/A; rs5 15:37 Body Mass Index 31.93 (95.25 kg, 172.72 cm) mb9 15:37 Pain Scale: Adult mb9 ED Course: 15:34 Patient arrived in ED. mg5 15:34 Viola Crowley PA-C is PHCP. sb4 15:34 Truong Madden DO is Attending Physician. sb4 15:35 Patient has correct armband on for positive identification. Placed in gown. Bed in low rs5 position. Call light in reach. Side rails up X2. 15:35 No provider procedures requiring assistance completed. rs5 15:37 Arm band placed on. mb9 15:38 Triage completed. mb9 16:23 Ankle Left 3 View XRAY In Process Unspecified. EDMS 16:26 Jose F Delarosa, STEPHANIE is Primary Nurse. rs5 16:47 Clemente Knott MD is Referral Physician. sb4 17:00 IV discontinued, intact, bleeding controlled, No redness/swelling at site. Pressure rs5 dressing applied. Administered Medications: 06:25 Drug: Ondansetron PO 4 mg PO once Route: PO; rs5 16:45 Follow up: Response: No adverse reaction rs5 15:50 Drug: fentaNYL (PF) IM 100 mcg IM once Route: IM; Site: left deltoid; rs5 16:30 Follow up: Response: No adverse reaction; Pain is decreased rs5 16:25 Drug: HYDROcodone-acetaminophen PO 5 mg-325 mg 2 tabs PO once Route: PO; rs5 16:45 Follow up: Response: No adverse reaction rs5 Medication: 16:45 VIS not applicable for this client. rs5 Outcome: 16:48 Discharge ordered by . sb4 17:00 Discharged to home via wheelchair, with family, rs5 17:00 Condition: stable rs5 17:00 Discharge instructions given to patient, family, Instructed on discharge instructions, follow up and referral plans. medication usage, Demonstrated understanding of instructions, follow-up care, medications, Prescriptions given X 1, 17:15 Patient left the ED. mb9 Signatures: Dispatcher [employer] EDMS Viola Crowley PA-C PA-C sb4 Carolyn Gutierrez RN RN mb9 Jose F Delarosa RN RN rs5 Eugenia Mcguire mg5 Corrections: (The following items were deleted from the chart) 15:39 15:37 Pulse 125bpm; Resp 20bpm; Pulse Ox 97% RA; Temp 98F; 95.25 kg; Height 5 ft. 8 mb9 in.; BMI: 31.9; Pain 03/12, Adult; mb9 18:06 16:55 Reassessment: Patient and/or family updated on plan of care and expected rs5 duration. Pain level reassessed. Patient is alert, oriented x 3, equal unlabored respirations, skin warm/dry/pink. rs5
--- NOTE | 2023-11-26 16:48 | EDPHYS ---
Physician Documentation [facility] Name: Ar Flores Age: 43 yrs Sex: Male : 1980 Arrival Date: 11/26/2023 Time: 15:33 Bed Treatment Private MD: ED Physician Truogn Madden HPI: 11/25 15:49 This 43 yrs old Male presents to ER via Carried with complaints of Leg Injury. sb4 15:49 patient states he tripped going down some steps and caused his left ankle to invert. sb4 complaining of severe pain to left ankle. no other injuries reported. Historical: - Allergies: 15:38 Demerol; seizure inducing; mb9 15:38 meperidine; mb9 15:38 NSAIDS; mb9 15:38 Pertussis Vaccines; mb9 15:38 tramadol; seizure inducing; mb9 - PMHx: 15:38 Anxiety; depressive disorder; Hypertensive disorder; PTSD; Seizures; mb9 - PSHx: 15:38 None; mb9 - Immunization history:: Adult Immunizations up to date. - Infectious Disease History:: Denies. - Social history:: Smoking status: Patient denies any tobacco usage or history of. ROS: 15:49 Constitutional: Negative for fever, chills, and weight loss, sb4 15:49 MS/extremity: Positive for injury or acute deformity, pain, of the anterior aspect of left ankle, 15:49 All other systems are negative, Exam: 15:49 Constitutional: The patient appears alert, awake, diaphoretic, in obvious pain, sb4 uncomfortable, 15:49 Cardiovascular: Rate: tachycardic, Rhythm: regular, 15:49 Musculoskeletal/extremity: Circulation is intact in all extremities. Pulses: are normal with no appreciated deficits, Perfusion: the extremity is normally perfused throughout, Sensation intact. Joints: the left ankle displays deformity, pain at rest, painful range of motion, swelling, tenderness, 16:49 Skin: Warm, dry with normal turgor. Normal color with no rashes, no lesions, and no sb4 evidence of cellulitis. Vital Signs: 15:37 BP 171 / 99; Pulse 125; Resp 20; Temp 98; Pulse Ox 97% on R/A; Weight 95.25 kg; Height mb9 5 ft. 8 in. ; Pain 10/10; 16:43 BP 155 / 94; Pulse 88; Resp 17; Pulse Ox 99% on R/A; rs5 15:37 Body Mass Index 31.93 (95.25 kg, 172.72 cm) mb9 15:37 Pain Scale: Adult mb9 MDM: 15:34 Patient medically screened. sb4 16:24 Independent interpretation of the following test(s) in the Emergency Department X-Ray: sb4 My interpretation is my interpretation of the left ankle xray images are acute fracture of distal lateral malleolus. 16:47 Data reviewed: vital signs, nurses notes, radiologic studies, and as a result, I will sb4 discharge patient. Counseling: I had a detailed discussion with the patient and/or guardian regarding the historical points, exam findings, and any diagnostic results supporting the discharge/admit diagnosis, radiology results, the need for outpatient follow up, a orthopedic surgeon, to return to the emergency department if symptoms worsen or persist or if there are any questions or concerns that arise at home. 11/25 15:39 Order name: Ankle Left 3 View XRAY; Complete Time: 16:33 sb4 11/25 16:34 Order name: Posterior Leg Splint; Complete Time: 18:06 sb4 11/25 16:34 Order name: Crutches; Complete Time: 18:06 sb4 Administered Medications: 06:25 Drug: Ondansetron PO 4 mg PO once Route: PO; rs5 16:45 Follow up: Response: No adverse reaction rs5 15:50 Drug: fentaNYL (PF) IM 100 mcg IM once Route: IM; Site: left deltoid; rs5 16:30 Follow up: Response: No adverse reaction; Pain is decreased rs5 16:25 Drug: HYDROcodone-acetaminophen PO 5 mg-325 mg 2 tabs PO once Route: PO; rs5 16:45 Follow up: Response: No adverse reaction rs5 Disposition: 16:04 I was immediately available on-site in the Emergency Department for consultation in the ms3 care of the patient. Disposition Summary: 11/26/23 16:48 Discharge Ordered Notes: Location: Home sb4 Problem: new sb4 Symptoms: have improved sb4 Condition: Stable sb4 Diagnosis - Nondisplaced fracture of lateral malleolus of left fibula sb4 Followup: sb4 - With: Clemente Knott MD - When: 1 week - Reason: Recheck today's complaints, Re-evaluation by your physician Discharge Instructions: - Discharge Summary Sheet sb4 - Nondisplaced Fibular Ankle Fracture Treated With Immobilization sb4 Forms: - Prescription Opioid Use sb4 - Patient Portal Instructions sb4 - Leadership Thank You Letter sb4 Prescriptions: - acetaminophen-codeine 300-30 mg Oral tablet - take 1 tablet ORAL route every 4 to 6 hours as needed for pain; 15 tablet; sb4 Refills: 0, Product Selection Permitted Signatures: Dispatcher [employer] EDMS Truong Madden DO DO ms3 Viola Crowley PAGenevaC PARicki sb4 Carolyn Gutierrez RN RN mb9 Jose F Delarosa RN RN rs5
[2023-11-26 17:25] VITALS: BP 155/94; TEMP 98; O2SAT 99
== END 2023-11-26 17:15 | disposition home or self-care (01) ==
LOC: ER 15:33
PROC: 2W3TX1Z Immobilization of Left Foot using Splint (ICD-10-PCS; principal; 2023-11-26)
DX: S82.65XA Nondisplaced fracture of lateral malleolus of left fibula, initial encounter for closed fracture (principal)
CPT/HCPCS: 73610; 29515; Q0162; J3010

== ENCOUNTER 2024-07-12 10:17 | Emergency (ER) | payer OTHER ==
[2024-07-12] MEDS ORDERED: CODEINE 30MG/APAP 300MG TAB ONE (10:45)
--- NOTE | 2024-07-12 10:53 | RAD REPORT ---
EXAM: CT brain without contrast HISTORY: Trauma;Visual disturbances COMPARISON: 01/08/2022 TECHNIQUE: Multiple contiguous axial images were obtained and a CT of the brain without contrast. Sag ittal and coronal reformats were performed. One or more of the following dose reduction techniques were used: Automated exposure control, adjust ment of the mA and/or kV according to patient size, and/or iterative reconstruction. FINDINGS: No evidence of hydrocephalus, intracranial hemorrhage, or extra-axial fluid collection. The brain is normal in morphology. No evidence of midline shift or areas of brain edema. The calvarium is intact. The visualized paranasal sinuses and mastoid air cells are essentially clear . IMPRESSION: No evidence of acute intracranial abnormality.
--- NOTE | 2024-07-12 11:45 | RAD REPORT ---
EXAMINATION: XR RIGHT FOOT CLINICAL INDICATION: Male, 44 years old. PAIN TECHNIQUE: Multiple views of the right foot were obtained. COMPARISON: No prior exam. FINDINGS: Transverse fracture suspected involving the base of the third metatarsal. No dislocation is evident. Questionable similar fracture base of the fourth metatarsal. Hardware is noted distal fibula. Small plantar calcaneal spur.
--- NOTE | 2024-07-12 11:56 | EDPHYS ---
Physician Documentation [facility] Name: Ar Flores Age: 44 yrs Sex: Male : 1980 Arrival Date: 07/12/2024 Time: 10:17 Bed 13 Private MD: ED Physician Lucas Mclain HPI: 07/12 10:32 This 44 yrs old Male presents to ER via Unassigned with complaints of Fall Injury. sb4 10:33 twisted his ankle and fell last night. complains of pain to right foot. thinks he hit sb4 his head last night too as he was seeing spots. states the visual symptoms have resolved. has no headache, dizziness, or nausea, is only complaining of pain in his right foot. no numbness or tingling. Historical: - Allergies: 10:38 Demerol; seizure inducing; ss 10:38 meperidine; ss 10:38 NSAIDS; ss 10:38 Pertussis Vaccines; ss 10:38 tramadol; seizure inducing; ss - PMHx: 10:38 Anxiety; depressive disorder; Hypertensive disorder; PTSD; Seizures; ss - Infectious Disease History:: Denies. - Social history:: Smoking status: Patient reports the use of cigarette tobacco products, smokes one pack cigarettes per day. ROS: 10:33 Constitutional: Negative for fever, chills, and weight loss, sb4 10:33 MS/extremity: Positive for injury or acute deformity, contusion, ecchymosis, pain, swelling, tenderness, of the dorsum of right foot, 10:33 All other systems are negative, Exam: 10:35 Head/Face: Normocephalic, atraumatic. Eyes: Extra-ocular motions intact. Periorbital sb4 areas with no swelling, redness, or edema. ENT: Mucous membranes moist. Respiratory: No increased work of breathing, no retractions or nasal flaring. 10:35 Constitutional: The patient appears alert, awake, anxious, restless, 10:35 Musculoskeletal/extremity: ecchymosis and swelling noted to dorsum of right foot. full ROM in toes and ankle. pedal pulses intact. Vital Signs: 10:36 BP 171 / 94; Pulse 104; Resp 21; Temp 98.2(TE); Pulse Ox 99% ; Weight 93.44 kg; Height ss 5 ft. 8 in. ; Pain 8/10; 12:16 BP 165 / 80; Pulse 95; Resp 16 S; Pulse Ox 98% on R/A; Pain 5/10; kc6 10:36 Body Mass Index 31.32 (93.44 kg, 172.72 cm) ss 10:36 Pain Scale: Adult ss 12:16 Pain Scale: Adult kc6 MDM: 10:25 Medical Screening Exam initiated sb4 11:54 Data reviewed: vital signs, nurses notes, radiologic studies, and as a result, I will sb4 discharge patient. Counseling: I had a detailed discussion with the patient and/or guardian regarding the historical points, exam findings, and any diagnostic results supporting the discharge/admit diagnosis, radiology results, the need for outpatient follow up, a orthopedic surgeon, to return to the emergency department if symptoms worsen or persist or if there are any questions or concerns that arise at home. 07/12 10:31 Order name: Head Brain Wo Cont CT; Complete Time: 10:56 sb4 07/12 10:31 Order name: Foot Right 3 View XRAY; Complete Time: 11:46 sb4 07/12 11:54 Order name: Orthopedic shoe; Complete Time: 12:16 sb4 Administered Medications: 10:53 Drug: Acetaminophen-Codeine PO (300 mg-30 mg) 2 tabs PO once; RASS on ADMIN: Combtv4, kc6 Very Agttd3, Agttd2, Rstlss1, AlertClm0, Drwsy-1, Lt Sdtn-2, Mod Sdtn-3, Dp Sdtn-4, UnArsble-5 Route: PO; 11:36 Follow up: Response: No adverse reaction; Pain is decreased; RASS: Alert and Calm (0) kc6 Disposition: 12:46 Co-signature as Attending Physician, Lucas Mclain MD I reviewed the patient's care rn provided by the Advanced Practice Provider and agree with the diagnosis and treatment plan. Disposition Summary: 07/12/24 11:55 Discharge Ordered Notes: Location: Home sb4 Problem: new sb4 Symptoms: have improved sb4 Condition: Stable sb4 Diagnosis - Nondisplaced fracture of fourth metatarsal bone, right foot, initial encounter for sb4 closed fracture - Nondisplaced fracture of third metatarsal bone, right foot, initial encounter for sb4 closed fracture Followup: sb4 - With: Private Physician - When: 2 - 3 days - Reason: Recheck today's complaints, Re-evaluation by your physician Discharge Instructions: - Discharge Summary Sheet sb4 - Metatarsal Fracture sb4 Forms: - Prescription Opioid Use sb4 - Patient Portal Instructions sb4 - Leadership Thank You Letter sb4 Prescriptions: - acetaminophen-codeine 300-30 mg Oral tablet - take 1 tablet ORAL route every 6 hours; 12 tablet; Refills: 0, Product sb4 Selection Permitted Signatures: Dispatcher [employer] EDLucas Stroud MD MD rn Blanchard, Shelby, RN RN Jazmin Turner RN RN Viola Luna, PARicki PARicki sb4
--- NOTE | 2024-07-12 11:56 | ER ---
Nurse's Notes [facility] Name: Ar Flores Age: 44 yrs Sex: Male : 1980 Arrival Date: 07/12/2024 Time: 10:17 Bed 13 Private MD: Diagnosis: Nondisplaced fracture of fourth metatarsal bone, right foot, initial encounter for closed fracture;Nondisplaced fracture of third metatarsal bone, right foot, initial encounter for closed fracture Presentation: 07/12 10:36 Chief complaint: Patient states: R foot pain and bruising after falling last night. ss Also reports hitting head. Denies LOC. Coronavirus screen: Client denies travel out of the [place] in the last 14 days. Ebola Screen: Patient denies exposure to infectious person. Patient denies travel to an Ebola-affected area in the 21 days before illness onset. Initial Sepsis Screen: Does the patient meet any 2 criteria? No. Patient's initial sepsis screen is negative. Does the patient have a suspected source of infection? No. Patient's initial sepsis screen is negative. Risk Assessment: Do you want to hurt yourself or someone else? Patient reports no desire to harm self or others. Onset of symptoms was July 11, 2024. 10:36 Method Of Arrival: Ambulatory ss 10:36 Acuity: TREY 4 ss Historical: - Allergies: 10:38 Demerol; seizure inducing; ss 10:38 meperidine; ss 10:38 NSAIDS; ss 10:38 Pertussis Vaccines; ss 10:38 tramadol; seizure inducing; ss - PMHx: 10:38 Anxiety; depressive disorder; Hypertensive disorder; PTSD; Seizures; ss - Infectious Disease History:: Denies. - Social history:: Smoking status: Patient reports the use of cigarette tobacco products, smokes one pack cigarettes per day. Screenin:54 [facility] ED Fall Risk Assessment (Adult) History of falling in the last 3 months, kc6 including since admission No falls in past 3 months (0 pts) Confusion or Disorientation No (0 pts) Intoxicated or Sedated No (0 pts) Impaired Gait Yes (1 pt) Mobility Assist Device Used No (0 pt) Altered Elimination No (0 pt) Score/Fall Risk Level 0 - 2 = Low Risk Oriented to surroundings, Maintained a safe environment, Educated pt \T\ family on fall prevention, incl call for assistance when getting out of bed. Abuse screen: Denies threats or abuse. Denies injuries from another. Nutritional screening: No deficits noted. Tuberculosis screening: No symptoms or risk factors identified. Assessment: 10:54 General: Appears in no apparent distress. uncomfortable, well groomed, well developed, kc6 Behavior is calm, cooperative, appropriate for age. Pain: Complains of pain in right foot and dorsum of right foot. Neuro: Level of Consciousness is awake, alert, obeys commands, Oriented to person, place, time, situation, Appropriate for age. Cardiovascular: Capillary refill < 3 seconds. Respiratory: Airway is patent Trachea midline Respiratory effort is even, unlabored, Respiratory pattern is regular, symmetrical. GI: No signs and/or symptoms were reported involving the gastrointestinal system. : No signs and/or symptoms were reported regarding the genitourinary system. EENT: No signs and/or symptoms were reported regarding the EENT system. Derm: No signs and/or symptoms reported regarding the dermatologic system. Skin is intact, is healthy with good turgor, Skin is pink, warm \T\ dry. Musculoskeletal: Circulation, motion, and sensation intact. Range of motion: intact in all extremities. 11:36 Reassessment: Patient appears in no apparent distress at this time. No changes from kc6 previously documented assessment. Patient and/or family updated on plan of care and expected duration. Pain level reassessed. Patient is alert, oriented x 3, equal unlabored respirations, skin warm/dry/pink. Patient states feeling better. Patient states symptoms have improved. Vital Signs: 10:36 BP 171 / 94; Pulse 104; Resp 21; Temp 98.2(TE); Pulse Ox 99% ; Weight 93.44 kg; Height ss 5 ft. 8 in. ; Pain 8/10; 12:16 BP 165 / 80; Pulse 95; Resp 16 S; Pulse Ox 98% on R/A; Pain 5/10; kc6 10:36 Body Mass Index 31.32 (93.44 kg, 172.72 cm) ss 10:36 Pain Scale: Adult ss 12:16 Pain Scale: Adult kc6 ED Course: 10:21 Patient arrived in ED. im 10:25 Viola Crowley PA-C is PHCP. sb4 10:25 Lucas Mclain MD is Attending Physician. sb4 10:35 Jazmin Fleming, RN is Primary Nurse. kc6 10:38 Triage completed. ss 10:38 Arm band placed on right wrist. ss 10:50 Head Brain Wo Cont CT In Process Unspecified. EDMS 10:54 Patient has correct armband on for positive identification. Bed in low position. Call kc6 light in reach. Side rails up X 1. Pulse ox on. NIBP on. Door closed. Noise minimized. Lights dimmed. Pillow given. Ice pack to injury. 10:54 Patient maintains SpO2 saturation greater than 95% on room air. kc6 11:37 Foot Right 3 View XRAY In Process Unspecified. EDMS 12:16 Ortho shoe applied to right foot. kc6 12:17 No provider procedures requiring assistance completed. Patient did not have IV access kc6 during this emergency room visit. Administered Medications: 10:53 Drug: Acetaminophen-Codeine PO (300 mg-30 mg) 2 tabs PO once; RASS on ADMIN: Combtv4, kc6 Very Agttd3, Agttd2, Rstlss1, AlertClm0, Drwsy-1, Lt Sdtn-2, Mod Sdtn-3, Dp Sdtn-4, UnArsble-5 Route: PO; 11:36 Follow up: Response: No adverse reaction; Pain is decreased; RASS: Alert and Calm (0) kc6 Medication: 12:17 VIS not applicable for this client. kc6 Outcome: 11:55 Discharge ordered by . sb4 12:17 Discharged to home ambulatory, kc6 12:17 Condition: good 12:17 Discharge instructions given to patient, Instructed on discharge instructions, follow up and referral plans. no drinking with medication, no driving heavy equipment, medication usage, Demonstrated understanding of instructions, follow-up care, medications, Prescriptions given X 1, 12:17 Patient left the ED. kc6 Signatures: Dispatcher [employer] EDMS Ann Perez RN RN ss Jazmin Fleming, STEPHANIE RN kc6 Viola Crowley, PA-C PAGenevaC sb4 Minnie Pope
[2024-07-12 12:23] VITALS: TEMP 98.2
[2024-07-12 12:24] VITALS: BP 165/80; O2SAT 98
== END 2024-07-12 12:17 | disposition home or self-care (01) ==
LOC: ER 10:17
DX: S92.334A Nondisplaced fracture of third metatarsal bone, right foot, initial encounter for closed fracture (principal); S92.344A Nondisplaced fracture of fourth metatarsal bone, right foot, initial encounter for closed fracture; F17.210 Nicotine dependence, cigarettes, uncomplicated
CPT/HCPCS: 70450; 99284